=== PATIENT | male | born 1990 | race Caucasian/White ===

== ENCOUNTER 2017-08-24 22:07 | Emergency (ER) | payer MEDICAID, OTHER ==
[2017-08-24] MEDS ORDERED: Sodium Chloride 0.9% 1,000 ML IV STA (22:36)
--- NOTE | 2017-08-24 22:54 | ED PDOC ---
HPI: Abdomen Time Seen by Provider: 08/24/17 22:07 Chief Complaint (Nursing): GI Problem Chief Complaint (Provider): Vomiting History Per: Patient History/Exam Limitations: no limitations Additional Complaint(s): 27 y/o male presents to the emergency department with a complaint of intermittent episodes of vomiting x2 weeks that increased within the last few days. Associated with auditory hallucinations. Patient admits he drinks up to half pint of vodka and has been homeless for 3 weeks. Denies homicidal ro suicidal ideation. Requesting psychiatric evaluation. Past Medical History Reviewed: Historical Data, Nursing Documentation, Vital Signs Vital Signs: Last Vital Signs Temp 96.3 F L 08/24/17 22:17 Pulse 74 08/24/17 22:17 Resp 18 08/24/17 22:17 BP 121/73 08/24/17 22:17 Pulse Ox 100 08/24/17 22:56 - Medical History PMH: Bipolar Disorder, Depression, Schizophrenia Denies: Diabetes, Hepatitis, HIV, HTN, Chronic Kidney Disease, Seizures, Sexually Transmitted Disease - Family History Family History: States: Unknown Family Hx - Home Medications Home Medications: Ambulatory Orders Medication Instructions Recorded Naproxen [Naprosyn Tab] 1 tab PO Q8 PRN #15 tab 12/31/16 Non-Formulary 1 ea TOP DAILY #1 ea 12/31/16 - Allergies Allergies/Adverse Reactions: Allergies Allergy/AdvReac Type Severity Reaction Status Date / Time No Known Allergies Allergy Verified 12/31/16 19:41 Review of Systems ROS Statement: Except As Marked, All Systems Reviewed And Found Negative Gastrointestinal: Positive for: Vomiting Psych: Positive for: Other (Auditory hallucinations). Negative for: Suicidal ideation (homicidal ideation ) Physical Exam - Reviewed Nursing Documentation Reviewed: Yes Vital Signs Reviewed: Yes - Physical Exam Appears: Positive for: Well (Patient is well groomed), Non-toxic, No Acute Distress Head Exam: Positive for: ATRAUMATIC, NORMAL INSPECTION, NORMOCEPHALIC Skin: Positive for: Normal Color, Warm, Dry Cardiovascular/Chest: Positive for: Regular Rate, Rhythm. Negative for: Murmur Respiratory: Positive for: Normal Breath Sounds. Negative for: Accessory Muscle Use, Respiratory Distress Gastrointestinal/Abdominal: Positive for: Normal Exam, Soft. Negative for: Tenderness Extremity: Positive for: Normal ROM. Negative for: Pedal Edema Neurologic/Psych: Positive for: Alert, Oriented (x3) - Laboratory Results Result Diagrams: 08/24/17 23:30 08/25/17 01:12 - ECG O2 Sat by Pulse Oximetry: 100 (RA) Pulse Ox Interpretation: Normal - Progress ED Course And Treament: patient comfortable in ED. Seen by CRis[facility]. d/w Dr. Mathur Diagnosis substance abuse Medical Decision Making Medical Decision Making: Time: [id number] Initial impression: Abdominal Pain s/p alcohol intake Initial plan: --Alcohol Serum --CMP --Drug Scree --Lipase --Magnesium --CBC w/ diff --Pepcid --Sodium chloride 500 mls/hr IV --Zofran 4 mg IVP --Urinalysis --Reevaluation Scribe Attestation: Documented by Rose Saini, acting as a scribe for Hua Singleton PA-C. Provider Scribe Attestation: All medical record entries made by the Scribe were at my direction and personally dictated by me. I have reviewed the chart and agree that the record accurately reflects my personal performance of the history, physical exam, medical decision making, and the department course for this patient. I have also personally directed, reviewed, and agree with the discharge instructions and disposition. Disposition - Clinical Impression Clinical Impression: Substance abuse - Patient ED Disposition Is Patient to be Admitted: No - Disposition Referrals: [facility] [Outside] Disposition: Routine/Home Disposition Time: 03:56 Condition: STABLE Instructions: Polysubstance Abuse (ED) Forms: [id number] ([employer])
[2017-08-24 23:34] LABS: BASO # 0.1 K/uL (0.0-0.2); BASO % 0.8 % (0.0-2.0); EOS # 0.1 K/uL (0.0-0.7); HEMATOCRIT 40.4 % (35.0-51.0); LYMPH # 3.3 K/uL (1.0-4.3); LYMPH % 37.9 % (20.0-40.0); MEAN CELL VOLUME 89.6 fl (80.0-94.0); MEAN CORPUSCULAR HEMOGLOBIN 29.4 pg (27.0-31.0); MEAN CORPUSCULAR HGB CONC 32.8 g/dL (33.0-37.0); MEAN PLATELET VOLUME 7.2 fl (7.2-11.7); MONO # 0.7 K/uL (0.0-0.8); MONO % 8.2 % (0.0-10.0); NEUT # 4.6 K/uL (1.8-7.0); NEUT % 52.1 % (50.0-75.0); RED CELL DISTRIBUTION WIDTH 13.5 % (11.5-14.5); WHITE BLOOD COUNT 8.8 K/uL (4.8-10.8)
[2017-08-24 23:39] LABS: URINE BILIRUBIN NEGATIVE (NEGATIVE); URINE BLOOD NEGATIVE (NEGATIVE); URINE COLOR YELLOW (YELLOW); URINE GLUCOSE (UA) NEG (Normal); URINE KETONE TRACE mg/dL (NEGATIVE); URINE LEUKOCYTE ESTERASE NEG Leu/uL (Negative); URINE PROTEIN NEGATIVE (NEGATIVE); WBC URINE < 1 /hpf (0-5)
[2017-08-24 23:46] LABS: ALCOHOL SERUM < 10 mg/dl (0-10); LIPASE 54 U/L (23-300)
[2017-08-24 23:49] LABS: MAGNESIUM 2.1 MG/DL (1.6-2.3)
[2017-08-25 01:21] LABS: CALCIUM 8.8 mg/dL (8.4-10.2); CARBON DIOXIDE 26 mmol/L (22-30); CHLORIDE 107 mmol/L (98-107); GFR AFRICAN-AMERICAN > 60; GLUCOSE,RANDOM 89 mg/dL (75-110); SODIUM 141 mmol/l (132-148)
[2017-08-25 01:28] LABS: BLOOD UREA NITROGEN 16 mg/dl (9-20)
[2017-08-25 01:29] LABS: ALB/GLOB RATIO 1.3 (1.0-2.1); ALKALINE PHOSPHATASE 46 U/L (38-126); ALT/SGPT 35 U/L (21-72); AST/SGOT 51 U/L (17-59); POTASSIUM 4.7 MMOL/L (3.6-5.0); TOTAL PROTEIN 7.1 G/DL (6.3-8.2)
[2017-08-25 06:45] VITALS: BP 123/72; PULSE 63; RESP 16; TEMP 98.3; O2SAT 98
== END 2017-08-25 06:48 | disposition home or self-care (01) ==
LOC: H.ER 22:07
DX: F19.10 Other psychoactive substance abuse, uncomplicated (principal); F20.9 Schizophrenia, unspecified; F31.9 Bipolar disorder, unspecified
CPT/HCPCS: 80053; 80320; 80324; 80345; 80346; 80349; 80353; 80358; 80361; 81003; 83690; 83735; 83992; 85025; 96374; 96375; 99281; J2405; J7040

== ENCOUNTER 2017-08-26 06:54 | Inpatient (IN) | payer MEDICAID, OTHER ==
--- NOTE | 2017-08-26 07:07 | ED PDOC ---
HPI: General Adult Time Seen by Provider: 08/26/17 07:03 History Per: Patient (Seen earlier for gastritis, now expressing Si with plan to kill himself with knife) Past Medical History Vital Signs: Last Vital Signs Temp 97.8 F 08/26/17 07:15 Pulse 70 08/26/17 07:15 Resp 18 08/26/17 07:15 BP 127/57 L 08/26/17 07:15 Pulse Ox 99 08/26/17 07:15 - Medical History PMH: Bipolar Disorder, Depression, Schizophrenia Denies: Diabetes, Hepatitis, HIV, HTN, Chronic Kidney Disease, Seizures, Sexually Transmitted Disease - Family History Family History: States: Unknown Family Hx - Home Medications Home Medications: Ambulatory Orders Medication Instructions Recorded No Known Home Med 08/26/17 - Allergies Allergies/Adverse Reactions: Allergies Allergy/AdvReac Type Severity Reaction Status Date / Time No Known Allergies Allergy Verified 12/31/16 19:41 Review of Systems Constitutional: Negative for: Fever Gastrointestinal: Negative for: Nausea, Vomiting, Abdominal Pain, Diarrhea Psych: Positive for: Suicidal ideation Physical Exam - Physical Exam Appears: Positive for: Non-toxic, No Acute Distress Cardiovascular/Chest: Positive for: Regular Rate, Rhythm Respiratory: Positive for: CNT, Normal Breath Sounds Gastrointestinal/Abdominal: Positive for: Normal Exam, Bowel Sounds, Soft Extremity: Positive for: Normal ROM Neurologic/Psych: Positive for: Alert, Oriented Medical Decision Making Medical Decision Making: Medically stable for psychiatric admission Disposition - Clinical Impression Clinical Impression: Depression - Patient ED Disposition Is Patient to be Admitted: Yes - Disposition Disposition Time: 08:36 Condition: FAIR - Pt Status Changed To: Hospital Disposition Of: Inpatient - Admit Certification Admit to Inpatient:: After my assessment, the patient will require hospitalization for at least two midnights. This is because of the severity of symptoms shown, intensity of services needed, and/or the medical risk in this patient being treated as an outpatient. - POA Present On Arrival: None
[2017-08-26 07:23] VITALS: O2SAT 99
--- NOTE | 2017-08-26 08:43 | RAD ---
HISTORY: cough COMPARISON: Yesterday FINDINGS: LUNGS: No active pulmonary disease. PLEURA: No significant pleural effusion identified, no pneumothorax apparent. CARDIOVASCULAR: Normal. OSSEOUS STRUCTURES: No significant abnormalities. VISUALIZED UPPER ABDOMEN: Normal. OTHER FINDINGS: None. IMPRESSION: No active disease.
--- NOTE | 2017-08-26 11:35 | PCM.BM ---
<Jennifer Lima - Last Filed: 08/26/17 11:36> Treatment Plan Problems - Problems identified on initial assessmt Problem 1 Date Initiated: 08/26/17 Time Initiated: 11:37 Assessment reference: NA Status: Active Priority: 1 Social Isolation Date Initiated: 08/26/17 Time Initiated: 11:37 Assessment reference: NA Treatment assets and liabiliti Patient Assests: cooperative, physically healthy, negotiates basic needs Patient Liabilities: financial problems, poor support system - Milieu Protocol Maintain good personal hygiene: daily Encourage regular showers, every shift Remind patient to perform daily oral care, every shift Assist patient to perform ADL's Conduct patient checks and document Observation sheet: Q15 minutes Maintain personal safety: every shift Educate patient to report safety concerns to staff, every shift Monitor environment for contraband/sharps Medication safety: Monitor for expected outcome, potential side effects: every shift, Assess barriers to learning: every shift, Assess readiness for medication education: every shift <Sohail Robison - Last Filed: 08/29/17 13:12> Family Contact Family involvement: Famliy/SO not involved Family contact: Patient declines to allow family contact at present Family contact name: Pt denied significant relationships with any family or friends. - Goals for Treatment Patient goals for treatment: Pt would like to find a way to end his homelessness so he can be safe and away from drugs. 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 Patient to be encouraged to attend groups regularly to promote self-awareness, sobriety, and improve insight , coping skills and self-esteem. Patient to be provided with referral for appropriate level of aftercare to reduce risk of future hospitalizations and ensure safety in the community. Discharge/Continuing Care - Treatment Team Participation Patient/Family/SO Statement: 08/30/17 16:20 Patient attended tx team this morning and was able to engage in discussion regarding progress on 3NP and tx goals. Patient somewhat anxious but superficially cooperative and pleasant. Patient reported feeling "normal", denying symptom of depression or anxiety. Patient refusing to take recommended medications on 3NP. Patient reports "I don't trust them. I don't need to take them. There are other ways to get better." Patient encouraged to explore alternate ways to manage symptoms and reduce risk of future hospitalizations. Patient responded with "There are just different ways." Patient focused on homelessness and lack of family/social supports. Patient denied SI/HI and was able to contract for safety. Patient abivilent but agreeable to outpatient referrals ([facility]). Patient discharged after tx team.
[2017-08-26] MEDS ORDERED: Magnesium Hydroxide Susp 30 ml UD PO PRN (11:43)
[2017-08-26] MEDS ORDERED: Alum-Mag Hydrox-Simethicone Susp (30 mL) PO PRN (11:43)
[2017-08-26] MEDS ORDERED: DiphenhydrAMINE 50 mg/ml Inj IM PRN (12:05)
--- NOTE | 2017-08-26 18:37 | CP.PCM.CON ---
History of Present Illness - History of Present Illness History of Present Illness: 27 y/o male with PMH polysubstance abuse, ETOH abuse, admitted to psych unit for suicidal ideation . He was seen in ER for nausea, vomiting and upper respiratory symptoms and wsa cleared for discharge when patient expressed suicidal thoughts about killing himself. Crisis eval was called and patient admitted to psych unit. At present refuses to give more details about his symptoms or what brought him to hospital stating that there was a reason that brought him here but he refuses to talk about it .Physically feels fine Refuses to give any further details . Allergies ; NKDA PMH; psychiatric disorder, polysubstance abuse Medications ; NOne Surgery ; None Family history ; None Social history ; homeless ( has parents and siblings ), smoker , ETOH abuser when he starts to drink does not stop until he falls asleep, polysubstance abuse , marijuana, K2 Review of Systems - Review of Systems All systems: reviewed and no additional remarkable complaints except Past Patient History - Infectious Disease Hx of Infectious Diseases: None ( ) - Tetanus Immunizations Tetanus Immunization: Unknown - Past Medical History & Family History Past Medical History?: No Past Family History: Reviewed and not pertinent - Past Social History Smoking Status: Heavy Smoker > 10 Cigarettes Daily Alcohol: > 2 Drinks/Day Drugs: Other (K2) - CARDIAC Hx Cardiac Disorders: No - PULMONARY Hx Respiratory Disorders: No - NEUROLOGICAL Hx Neurological Disorder: No - HEENT Hx HEENT Problems: No - RENAL Hx Chronic Kidney Disease: No - ENDOCRINE/METABOLIC Hx Endocrine Disorders: No - HEMATOLOGICAL/ONCOLOGICAL Hx Blood Disorders: No - INTEGUMENTARY Hx Dermatological Problems: No - MUSCULOSKELETAL/RHEUMATOLOGICAL Hx Musculoskeletal Disorders: No - GASTROINTESTINAL Hx Gastrointestinal Disorders: No - GENITOURINARY/GYNECOLOGICAL Hx Genitourinary Disorders: No - PSYCHIATRIC Hx Substance Use: Yes (THC) - SURGICAL HISTORY Hx Surgeries: Yes - ANESTHESIA Hx Anesthesia: No Meds Allergies/Adverse Reactions: Allergies Allergy/AdvReac Type Severity Reaction Status Date / Time No Known Allergies Allergy Verified 12/31/16 19:41 - Medications Medications: Current Medications Acetaminophen (Tylenol 325mg Tab) 650 mg PO Q4 PRN PRN Reason: Pain, moderate (4-7) Al Hydrox/Mg Hydrox/Simethicone (Maalox Plus 30 Ml) 30 ml PO Q4 PRN PRN Reason: Dyspepsia Diphenhydramine HCl (Benadryl) 50 mg PO Q6 PRN PRN Reason: Extrapyramidal Symptoms Diphenhydramine HCl (Benadryl) 50 mg IM Q6 PRN PRN Reason: Agitation Escitalopram Oxalate (Lexapro) 5 mg PO DAILY JANET Haloperidol (Haldol) 5 mg PO Q4 PRN PRN Reason: Agitation Haloperidol Lactate (Haldol) 5 mg IM Q4 PRN PRN Reason: Agitation, Unable to Take PO Lorazepam (Ativan) 2 mg IM Q4 PRN PRN Reason: Anxiety/Agitation,Unable PO Lorazepam (Ativan) 2 mg PO Q6 PRN PRN Reason: Agitation Magnesium Hydroxide (Milk Of Magnesia) 30 ml PO HS PRN PRN Reason: Constipation Physical Exam - Constitutional Appears: Well, Non-toxic, No Acute Distress - Head Exam Head Exam: ATRAUMATIC, NORMOCEPHALIC - Eye Exam Eye Exam: EOMI, Normal appearance - ENT Exam ENT Exam: Normal Exam - Neck Exam Neck exam: Positive for: Full Rom, Normal Inspection - Respiratory Exam Respiratory Exam: NORMAL BREATHING PATTERN. absent: Accessory Muscle Use, Prolonged Expiratory Phase, Respiratory Distress - Cardiovascular Exam Cardiovascular Exam: absent: JVD - Rectal Exam Rectal Exam: Deferred - Extremities Exam Extremities exam: Negative for: pedal edema - Neurological Exam Neurological exam: Alert, Oriented x3 - Psychiatric Exam Psychiatric exam: Agitated - Skin Skin Exam: Dry, Normal Color, Warm Results - Vital Signs Recent Vital Signs: Last Vital Signs Temp 97.8 F 08/26/17 09:37 Pulse 70 08/26/17 09:37 Resp 18 08/26/17 09:37 BP 127/57 L 08/26/17 09:37 Pulse Ox 99 08/26/17 07:15 - Labs Labs: Laboratory Results - last 24 hr 08/26/17 08/26/17 09:46 09:46 Urine Opiates Screen Negative Urine Methadone Screen Negative Ur Barbiturates Screen Negative Ur Phencyclidine Scrn Negative Ur Amphetamines Screen Negative U Benzodiazepines Scrn Negative U Oth Cocaine Metabols Negative U Cannabinoids Screen Negative Alcohol, Quantitative < 10 Assessment & Plan - Assessment and Plan (Free Text) Assessment: 27 y/o male with PMH polysubstance abuse, ETOH abuse, admitted to psych unit for suicidal ideation . He was seen in ER for nausea, vomiting and upper respiratory symptoms and wsa cleared for discharge when patient expressed suicidal thoughts about killing himself. Crisis eval was called and patient admitted to psych unit. At present refuses to give more details about his symptoms or what brought him to hospital stating that there was a reason that brought him here but he refuses to talk about it .Physically feels fine Refuses to give any further details . 1. psychiatric disorder-- managemt as per psych Patient is medically stable Please re consult if needed
[2017-08-27 07:31] LABS: T4 9.18 ug/dl (5.5-11.0)
[2017-08-27 07:45] LABS: THYROID STIMULATING HORMONE 0.66 mIU/ML (0.46-4.68)
--- NOTE | 2017-08-27 14:49 | PCM.PSYCH ---
Initial Psychiatric Evaluation - Initial Psychiatric Evaluation Type of Admission: Voluntary Legal Status: Capacity Chief Complaint (in patient's own words): I do need to work on myself Patient's Reaction to Hospitalization: pt requested to get help History of Present Illness and Precipitating Events: pt with previous diagnosis of polysubstance use and psychotic disorder, one previous hospitalization at 01/17, non compliant with medications or follow up pt presented to ER for abdominal pain, then expressed depressed mood and suicidal ideations pt reported using alcohol daily , last use two days before admiision, not specifying amount but stating it wasa large amount also reporteed smoking cannabis daily reported being here to get back on track, pt reported non command auditory hallucinations and presenting with diaorganized thought process, denied current S/HI and urine toxicology is negative and blood alcohol level less than 10 Current Medications: Active Medications Generic Name Dose Route Start Last Admin Trade Name Freq PRN Reason Stop Dose Admin Acetaminophen 650 mg 08/26/17 11:43 Tylenol 325mg Tab PO Q4 PRN Pain, moderate (4-7) Al Hydrox/Mg Hydrox/Simethicone 30 ml 08/26/17 11:43 Maalox Plus 30 Ml PO Q4 PRN Dyspepsia Diphenhydramine HCl 50 mg 08/26/17 11:43 Benadryl PO Q6 PRN Extrapyramidal Symptoms Diphenhydramine HCl 50 mg 08/26/17 12:05 Benadryl IM Q6 PRN Agitation Escitalopram Oxalate 5 mg 08/27/17 09:00 Lexapro PO DAILY JANET Haloperidol 5 mg 08/26/17 11:43 Haldol PO Q4 PRN Agitation Haloperidol Lactate 5 mg 08/26/17 11:43 Haldol IM Q4 PRN Agitation, Unable to Take PO Lorazepam 2 mg 08/26/17 11:43 Ativan IM Q4 PRN Anxiety/Agitation,Unable PO Lorazepam 1 mg 08/27/17 12:53 Ativan PO BID PRN Anxiety Lorazepam 1 mg 08/27/17 17:00 Ativan PO TID JANET Magnesium Hydroxide 30 ml 08/26/17 11:43 Milk Of Magnesia PO HS PRN Constipation Risperidone 1 mg 08/27/17 14:34 Risperdal M-Tab PO DAILY JANET Past Psychiatric History - Past Psychiatric History Previous Treatment History: Inpatient Explanation of prior treatment: one hospitalization at 01/17 in [facility] , due to hallucinogen and cannabis induced psychosis since then non compliant with any follow up History of Abuse: denied History of ETOH/Drug Use: pt reported using alcohol daily since age 19. denied being in rehab before using cannabis daily and history of using hallucinogens History of Family Illness: denied Pertinent Medical Hx (Current Medical&Sleep Prob, Allergies): Allergies Allergy/AdvReac Type Severity Reaction Status Date / Time No Known Allergies Allergy Verified 12/31/16 19:41 No Known Home Med 08/26/17 Mental Status Examination - Personal Presentation Personal Presentation: Looks stated age Additional comments: unkempt, disheveled - Affect Affect: Depressed - Motor Activity Motor Activity: Psychomotor Agitation - Reliability in Providing Information Reliability in Providing Information: Poor, due to alteration in thoughts, Poor , due to altered mood - Speech Speech: Disorganized - Mood Mood: Anxious - Formal Thought Process Formal Thought Process: Hallucinations, Loosening of associations, Circumstantial Additional comments: pt reported non command auditory hallucinations observed internally preoccupied and responding to internal stimuli - Hallucinations/Delusions Hallucinations: Auditory - Obsessions/Compulsions Obsessions: No Compulsions: No - Cognitive Functions Orientation: Person, Place Sensorium: Alert Attention/Concentration: Easily distracted Abstract Thinking: [place] Judgement: Imparied, as evidence by: Poor judgement, Imparied, as evidence by: Lack of insight into illness Memory: Recent intact, as evidence by: Ability to recall events of the day - Risk Risk: Diminished functioning - Strength & Assets Inventory Strength & Assets Inventory: Life experience - Limitations Additional comments: homeless, unemployed DSM 5 DX - DSM 5 DSM 5 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
[2017-08-27] MEDS: Risperidone M tab 1 MG PO SCH (18:23)
--- NOTE | 2017-08-28 11:46 | PCM.PYCHPN ---
Psychiatric Progress Note - Psychiatric Progress Note Patient seen today, length of contact: pt seen and evaluated Patient Chief Complaint: pt still feels very anxious and minimises his selfdestructive behavior and has been abusing illicit drugs and alcohol and remains with poor insight and need further stabilization.pt refuses to take meds . DSM 5 Symptoms Update: depression,mood disorder,substance abuse Medication Change: No Medical Record Reviewed: Yes Mental Status Examination - Cognitive Function Orientation: Person, Place Memory: Intact Attention: Poor Concentration: Poor Association: WNL Fund of Knowledge: WNL - Mood Mood: Depressed, Anxious - Affect Affect: Depressed - Speech Speech: Appropriate - Formal Thought Process Formal Thought Process: Hallucinations, Loosening of associations, Circumstantial - Homicidal Ideation Homicidal Ideation: No Goal/Treatment Plan - Goal/Treatment Plan Progress Toward Problem(s) and Goals/Treatment Plan: will continue to offer lexapro and add trileptal if pt is agreeable will engage pt in therapy.
[2017-08-28] MEDS: Risperidone M tab 1 MG PO SCH (18:54)
--- NOTE | 2017-08-29 11:50 | PCM.PYCHPN ---
Psychiatric Progress Note - Psychiatric Progress Note Patient seen today, length of contact: pt seen and evaluated Patient Chief Complaint: pt still feels very anxious and minimises his selfdestructive behavior and has been abusing illicit drugs and alcohol and remains with poor insight and need further stabilization.pt refuses to take meds . Medication Change: No Medical Record Reviewed: Yes Mental Status Examination - Cognitive Function Orientation: Person, Place Memory: Intact Attention: Poor Concentration: Poor Association: WNL Fund of Knowledge: WNL - Mood Mood: Depressed, Anxious - Affect Affect: Depressed - Speech Speech: Appropriate - Formal Thought Process Formal Thought Process: Hallucinations, Loosening of associations, Circumstantial - Homicidal Ideation Homicidal Ideation: No Goal/Treatment Plan - Goal/Treatment Plan Progress Toward Problem(s) and Goals/Treatment Plan: will continue to offer lexapro and add trileptal if pt is agreeable will engage pt in therapy.
[2017-08-29] MEDS: Risperidone M tab 1 MG PO SCH (14:21)
[2017-08-30] MEDS: Risperidone M tab 1 MG PO SCH (09:21)
[2017-08-30 10:58] VITALS: BP 141/83; PULSE 54; RESP 16; TEMP 97.9
--- NOTE | 2017-08-30 14:34 | PCM.PYCHDC ---
Mental Status Examination - Mental Status Examination Orientation: Person, Situation, Time Memory: Intact Mood: Neutral Affect: Constricted Speech: Appropriate Attention: WNL Concentration: WNL Association: WNL Fund of Knowledge: Poor Formal Thought Process: No Impairment Description of patient's judgement and insight: impaired insight and poor judgement Psychotic Thoughts and Behaviors: pt denied perceptual disturbances, denied psychotic symptoms, non elicited Suicidal Ideation: No Current Homicidal Ideation?: No Discharge Summary - Discharge Note Reason for Hospitalization: pt requested to get help with previous diagnosis of polysubstance use and psychotic disorder, one previous hospitalization at 01/17, non compliant with medications or follow up pt presented to ER for abdominal pain, then expressed depressed mood and suicidal ideations pt reported using alcohol daily , last use two days before admiision, not specifying amount but stating it wasa large amount also reporteed smoking cannabis daily reported being here to get back on track, pt reported non command auditory hallucinations and presenting with diaorganized thought process, denied current S/HI and urine toxicology is negative and blood alcohol level less than 10 Consultations:: List each consultation separately and include: 1. Reason for request. 2. Findings. 3. Follow-up Summary of Hospital Course include:: 1. Description of specific treatment plan utilized for patients during their course of treatmen. 2. Summarize the time- course for resolution of acute symptoms and/or regressed behaviors. 3. Describe issues identified and worked on during hospitalization. 4. Describe medication utilized. 5. Describe medical problems identified and treated. 6. 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
== END 2017-08-30 15:48 | disposition home or self-care (01) | DRG 897 ==
LOC: H.ER 06:54 → H.ERHOLD 08:35 → H.PSYCH 09:50
PROVIDERS: ADMIT Psychiatry & Neurology Psychiatry; ATTEND Psychiatry & Neurology Psychiatry
DX: F10.24 Alcohol dependence with alcohol-induced mood disorder (principal); F12.159 Cannabis abuse with psychotic disorder, unspecified; F10.239 Alcohol dependence with withdrawal, unspecified; R45.851 Suicidal ideations; F17.210 Nicotine dependence, cigarettes, uncomplicated; Y90.0 Blood alcohol level of less than 20 mg/100 ml; Z59.0 Homelessness; Z91.14 Patient's other noncompliance with medication regimen; Z91.19 Patient's noncompliance with other medical treatment and regimen

== ENCOUNTER 2017-08-31 04:21 | Inpatient (IN) | payer MEDICAID, OTHER ==
[2017-08-31 04:41] VITALS: O2SAT 98
--- NOTE | 2017-08-31 04:49 | ED PDOC ---
HPI: Psych/Substance Abuse Time Seen by Provider: 08/31/17 04:28 Chief Complaint (Nursing): Psychiatric Evaluation Chief Complaint (Provider): "I'm angry" History Per: Patient Additional Complaint(s): 27 yo male, PMH of "psych problems," presents to ED with complaints of aggressive behavior at home. Reports that he was biting his tongue and screaming. Pt admits to thoughts of hurting himself, but not killing himself. no homicidal ideations. Pt sates: "I just want to break things." As per chart review: Pt with Psychiatric history of Bipolar Disorder, Schizophrenia and Depression Past Medical History Reviewed: Nursing Documentation, Vital Signs Vital Signs: Last Vital Signs Temp 98.1 F 08/31/17 04:37 Pulse 71 08/31/17 04:37 Resp 16 08/31/17 04:37 BP 144/67 08/31/17 04:37 Pulse Ox 98 08/31/17 04:37 - Medical History PMH: Bipolar Disorder, Depression, Schizophrenia Denies: Diabetes, Hepatitis, HIV, HTN, Chronic Kidney Disease, Seizures, Sexually Transmitted Disease - Surgical History Surgical History: No Surg Hx - Family History Family History: States: Unknown Family Hx - Social History Current smoker - smoking cessation education provided: No Alcohol: None Drugs: Denies - Home Medications Home Medications: Ambulatory Orders Medication Instructions Recorded Escitalopram [Lexapro] 5 mg PO DAILY 15 Days #15 tab 08/30/17 - Allergies Allergies/Adverse Reactions: Allergies Allergy/AdvReac Type Severity Reaction Status Date / Time No Known Allergies Allergy Verified 08/31/17 04:36 Review of Systems ROS Statement: Except As Marked, All Systems Reviewed And Found Negative Physical Exam - Reviewed Nursing Documentation Reviewed: Yes Vital Signs Reviewed: Yes - Physical Exam Appears: Positive for: Well, Non-toxic, No Acute Distress Head Exam: Positive for: ATRAUMATIC, NORMAL INSPECTION, NORMOCEPHALIC Skin: Positive for: Normal Color, Warm, DRY Eye Exam: Positive for: EOMI, Normal appearance, PERRL ENT: Positive for: Normal ENT Inspection Neck: Positive for: Normal, Painless ROM Cardiovascular/Chest: Positive for: Regular Rate, Rhythm Respiratory: Positive for: CNT, Normal Breath Sounds Gastrointestinal/Abdominal: Positive for: Normal Exam, Bowel Sounds, Soft Back: Positive for: Normal Inspection Extremity: Positive for: Normal ROM Neurologic/Psych: Positive for: Alert, Oriented - Laboratory Results Result Diagrams: 08/31/17 05:21 08/31/17 05:21 - ECG O2 Sat by Pulse Oximetry: 98 Medical Decision Making Medical Decision Making: Diagnostics ordered Crisis called to bedside. See notes. Pt placed in 1:1 for safety UA and UDS pending CBC and COMP WNL Alcohol (-) Pt medically cleared for admission to 3[facility] Disposition - Clinical Impression Clinical Impression: Schizoaffective disorder - Patient ED Disposition Is Patient to be Admitted: Yes - Disposition Disposition Time: 05:59 Condition: STABLE Forms: [employer] (Thai) - Pt Status Changed To: Hospital Disposition Of: Inpatient - Admit Certification Admit to Inpatient:: After my assessment, the patient will require hospitalization for at least two midnights. This is because of the severity of symptoms shown, intensity of services needed, and/or the medical risk in this patient being treated as an outpatient. - POA Present On Arrival: None
[2017-08-31 05:25] LABS: BASO # 0.1 K/uL (0.0-0.2); BASO % 0.9 % (0.0-2.0); EOS # 0.1 K/uL (0.0-0.7); HEMATOCRIT 43.2 % (35.0-51.0); LYMPH # 3.9 K/uL (1.0-4.3); LYMPH % 37.6 % (20.0-40.0); MEAN CELL VOLUME 89.8 fl (80.0-94.0); MEAN CORPUSCULAR HEMOGLOBIN 29.8 pg (27.0-31.0); MEAN CORPUSCULAR HGB CONC 33.1 g/dL (33.0-37.0); MONO # 0.7 K/uL (0.0-0.8); MONO % 7.1 % (0.0-10.0); NEUT # 5.5 K/uL (1.8-7.0); NEUT % 53.4 % (50.0-75.0); RED CELL DISTRIBUTION WIDTH 13.5 % (11.5-14.5); WHITE BLOOD COUNT 10.3 K/uL (4.8-10.8)
[2017-08-31 05:34] LABS: ALB/GLOB RATIO 1.3 (1.0-2.1); ALCOHOL SERUM < 10 mg/dl (0-10); ALKALINE PHOSPHATASE 71 U/L (38-126); ALT/SGPT 39 U/L (21-72); AST/SGOT 27 U/L (17-59); BILIRUBIN,TOTAL 0.2 mg/dl (0.2-1.3); BLOOD UREA NITROGEN 11 mg/dl (9-20); CARBON DIOXIDE 26 mmol/L (22-30); CHLORIDE 105 mmol/L (98-107); GFR AFRICAN-AMERICAN > 60; GLUCOSE,RANDOM 99 mg/dL (75-110); SODIUM 143 mmol/l (132-148)
[2017-08-31 07:27] LABS: RBC URINE 1 /hpf (0-3); URINE BACTERIA RARE (<OCC); URINE BILIRUBIN SMALL (NEGATIVE); URINE BLOOD NEGATIVE (NEGATIVE); URINE COLOR AMBER (YELLOW); URINE GLUCOSE (UA) NEG (Normal); URINE KETONE NEGATIVE (NEGATIVE); URINE LEUKOCYTE ESTERASE NEG Leu/uL (Negative); URINE PROTEIN 30 mg/dL (NEGATIVE); WBC URINE < 1 /hpf (0-5)
[2017-08-31 09:17] VITALS: RESP 18
[2017-08-31] MEDS ORDERED: Alum-Mag Hydrox-Simethicone Susp (30 mL) PO PRN (11:28)
[2017-08-31] MEDS ORDERED: DiphenhydrAMINE 50 mg/ml Inj IM PRN (11:28)
[2017-08-31] MEDS ORDERED: Magnesium Hydroxide Susp 30 ml UD PO PRN (11:28)
--- NOTE | 2017-08-31 14:27 | PCM.PSYCH ---
Initial Psychiatric Evaluation - Initial Psychiatric Evaluation Type of Admission: Voluntary Legal Status: Capacity Chief Complaint (in patient's own words): I WANTED TO HURT MYSELF Patient's Reaction to Hospitalization: PT REQUESTED HELP History of Present Illness and Precipitating Events: PT WITH PREVIOUS DISGNOSIS OF DEPRESSION AND POLYSUBSTANCE USE DISORDER, RECENTLY DISCHARGED FROM HOSPITAL , PT IS HOMELESS , WITH MULTIPLE FINANCIAL STRESSORS, BECAME INCREASINGLY DEPRESSED WITH SUICIDAL IDEATIONS, PRESENTED TO ER FOR HELP Current Medications: Active Medications Generic Name Dose Route Start Last Admin Trade Name Freq PRN Reason Stop Dose Admin Acetaminophen 650 mg 08/31/17 11:28 Tylenol 325mg Tab PO Q4 PRN Pain, severe (8-10) Al Hydrox/Mg Hydrox/Simethicone 30 ml 08/31/17 11:28 Maalox Plus 30 Ml PO Q4 PRN Dyspepsia Diphenhydramine HCl 50 mg 08/31/17 11:28 Benadryl IM Q6 PRN Extrapyramidal S/S Unable PO Diphenhydramine HCl 50 mg 08/31/17 11:28 Benadryl PO Q6 PRN Extrapyramidal Symptoms Escitalopram Oxalate 5 mg 09/01/17 09:00 Lexapro PO DAILY JANET Haloperidol 5 mg 08/31/17 11:28 Haldol PO Q4 PRN Agitation Haloperidol Lactate 5 mg 08/31/17 11:28 Haldol IM Q4 PRN Agitation, Unable to Take PO Lorazepam 2 mg 08/31/17 11:28 Ativan IM Q4 PRN Anxiety/Agitation,Unable PO Lorazepam 2 mg 08/31/17 11:28 Ativan PO Q4 PRN Anxiety/Agitation Magnesium Hydroxide 30 ml 08/31/17 11:28 Milk Of Magnesia PO HS PRN Constipation Past Psychiatric History - Past Psychiatric History Explanation of prior treatment: MULTIPLE INPATIENT HOSPITALIZATIONS History of Abuse: DENIED History of ETOH/Drug Use: HX OF ALCOHOL, STIMULANT AND CANNABIS USE History of Family Illness: DENIED Pertinent Medical Hx (Current Medical&Sleep Prob, Allergies): Allergies Allergy/AdvReac Type Severity Reaction Status Date / Time No Known Allergies Allergy Verified 08/31/17 04:36 Escitalopram [Lexapro] 5 mg PO DAILY 15 Days #15 tab 08/30/17 Mental Status Examination - Personal Presentation Personal Presentation: Looks stated age - Affect Affect: Depressed - Motor Activity Motor Activity: Psychomotor Retardation - Reliability in Providing Information Reliability in Providing Information: Poor, due to altered mood - Speech Speech: Irrelevant - Mood Mood: Depressed - Formal Thought Process Formal Thought Process: Circumstantial Additional comments: PT DENIED PERCEPTUAL DISTURBANCES, NON ELICITED - Obsessions/Compulsions Obsessions: No Compulsions: No - Cognitive Functions Orientation: Person, Place Sensorium: Alert Attention/Concentration: Easily distracted Abstract Thinking: [place] Judgement: Imparied, as evidence by: Poor judgement, Imparied, as evidence by: Lack of insight into illness - Risk Risk: Diminished functioning - Strength & Assets Inventory Strength & Assets Inventory: Life experience - Limitations Additional comments: HOMELESSNESS DSM 5 DX - DSM 5 DSM 5 Diagnosis: DEPRESSIVE DISORDER POLYSUBSTANCE USE DISORDER - Recommended/Plan of Treatment Treatment Recommendations and Plan of Treatment: START LEXAPRO 5MG GROUP AND SUPPORTIVE THERAPY REFERRAL TO REHAB ON DISCHARGE Projected ELOS: 7 DAYS Discharge Plan and Discharge Criteria: PT NO LONGER DEPRESSED
[2017-08-31 16:55] VITALS: BP 123/69; PULSE 65; TEMP 97.7
--- NOTE | 2017-08-31 18:34 | CP.PCM.CON ---
History of Present Illness - History of Present Illness History of Present Illness: 27 y/o male with PMH polysubstance abuse, ETOH abuse,depression , psychiatric disorder, homeless discharged from psych unit 08/30 presented to ER for worsening depression and suicidal ideation . Medicine consult was called. As per chart and staff patient refused psychiatric management last admission., medications and grpoup therapy so wsa discharged . Patient sattes that he started having bad thoughts so decided to come back. In ER he was aggressive . At present he is calm and cooperativre , denies any CP , DSOB, palpitations. Gives history of frequent urination but denies dysuria. Complains of sudden generalized body tremors at times. He admits to heavy drinking and withdrawal symptoms when he stops. He would like to stop drinking Gives history of prior psychiatric admissions but does not like psychiatric meds because he does not need them . Has prior history of suicidal attempt 7 months ago by cutting his wrists. Allergies ; NKDA PMH; psychiatric disorder, polysubstance abuse, homeless Medications ; NOne Surgery ; None Family history ; None Social history ; homeless ( has parents and siblings ), smoker , ETOH abuser when he starts to drink does not stop until he falls asleep, polysubstance abuse , marijuana, K2 ROS ; 14 point review of symptoms negative except above Review of Systems - Review of Systems All systems: reviewed and no additional remarkable complaints except Past Patient History - Infectious Disease Hx of Infectious Diseases: None ( ) - Tetanus Immunizations Tetanus Immunization: Unknown - Past Medical History & Family History Past Medical History?: No Past Family History: Reviewed and not pertinent - Past Social History Smoking Status: Heavy Smoker > 10 Cigarettes Daily Alcohol: > 2 Drinks/Day Drugs: Denies, Cocaine, Other (k2) Home Situation {Lives}: Homeless - CARDIAC Hx Cardiac Disorders: No Hx Hypertension: No - PULMONARY Hx Respiratory Disorders: No Hx Tuberculosis: No - NEUROLOGICAL Hx Neurological Disorder: No Hx Seizures: No - HEENT Hx HEENT Problems: No - RENAL Hx Chronic Kidney Disease: No - ENDOCRINE/METABOLIC Hx Endocrine Disorders: No - HEMATOLOGICAL/ONCOLOGICAL Hx Blood Disorders: No Hx Human Immunodeficiency Virus (HIV): No - INTEGUMENTARY Hx Dermatological Problems: No - MUSCULOSKELETAL/RHEUMATOLOGICAL Hx Musculoskeletal Disorders: No - GASTROINTESTINAL Hx Gastrointestinal Disorders: No - GENITOURINARY/GYNECOLOGICAL Hx Genitourinary Disorders: No Hx Sexually Transmitted Disorders: No - PSYCHIATRIC Hx Substance Use: No - SURGICAL HISTORY Hx Surgeries: No - ANESTHESIA Hx Anesthesia: No Meds Allergies/Adverse Reactions: Allergies Allergy/AdvReac Type Severity Reaction Status Date / Time No Known Allergies Allergy Verified 08/31/17 04:36 - Medications Medications: Current Medications Acetaminophen (Tylenol 325mg Tab) 650 mg PO Q4 PRN PRN Reason: Pain, severe (8-10) Al Hydrox/Mg Hydrox/Simethicone (Maalox Plus 30 Ml) 30 ml PO Q4 PRN PRN Reason: Dyspepsia Diphenhydramine HCl (Benadryl) 50 mg IM Q6 PRN PRN Reason: Extrapyramidal S/S Unable PO Diphenhydramine HCl (Benadryl) 50 mg PO Q6 PRN PRN Reason: Extrapyramidal Symptoms Escitalopram Oxalate (Lexapro) 5 mg PO DAILY JANET Haloperidol (Haldol) 5 mg PO Q4 PRN PRN Reason: Agitation Haloperidol Lactate (Haldol) 5 mg IM Q4 PRN PRN Reason: Agitation, Unable to Take PO Lorazepam (Ativan) 2 mg IM Q4 PRN PRN Reason: Anxiety/Agitation,Unable PO Lorazepam (Ativan) 2 mg PO Q4 PRN PRN Reason: Anxiety/Agitation Magnesium Hydroxide (Milk Of Magnesia) 30 ml PO HS PRN PRN Reason: Constipation Physical Exam - Constitutional Appears: Non-toxic, No Acute Distress - Head Exam Head Exam: ATRAUMATIC, NORMAL INSPECTION, NORMOCEPHALIC - Eye Exam Eye Exam: EOMI, Normal appearance, PERRL Pupil Exam: NORMAL ACCOMODATION - ENT Exam ENT Exam: Mucous Membranes Moist, Normal Exam - Neck Exam Neck exam: Positive for: Full Rom, Normal Inspection - Respiratory Exam Respiratory Exam: Clear to Auscultation Bilateral, NORMAL BREATHING PATTERN. absent: Rales, Rhonchi, Wheezes - Cardiovascular Exam Cardiovascular Exam: REGULAR RHYTHM, RRR, +S1, +S2. absent: JVD - GI/Abdominal Exam GI & Abdominal Exam: Normal Bowel Sounds, Soft. absent: Distended, Guarding, Rebound, Tenderness - Rectal Exam Rectal Exam: Deferred - Extremities Exam Extremities exam: Positive for: normal capillary refill, normal inspection, pedal pulses present. Negative for: calf tenderness, pedal edema - Back Exam Back exam: NORMAL INSPECTION - Neurological Exam Neurological exam: Alert, CN II-XII Intact, Oriented x3 - Psychiatric Exam Psychiatric exam: Flat Affect - Skin Skin Exam: Dry, Intact, Normal Color, Warm Results - Vital Signs Recent Vital Signs: Last Vital Signs Temp 97.7 F 08/31/17 16:54 Pulse 65 08/31/17 16:54 Resp 18 08/31/17 16:54 BP 123/69 08/31/17 16:54 Pulse Ox 98 08/31/17 05:59 - Labs Result Diagrams: 08/31/17 05:21 08/31/17 05:21 Labs: Laboratory Results - last 24 hr 08/31/17 08/31/17 08/31/17 05:21 05:21 06:21 WBC 10.3 RBC 4.81 Hgb 14.3 Hct 43.2 MCV 89.8 MCH 29.8 MCHC 33.1 RDW 13.5 Plt Count 223 MPV 7.0 L Neut % (Auto) 53.4 Lymph % (Auto) 37.6 [place] % (Auto) 7.1 Eos % (Auto) 1.0 Baso % (Auto) 0.9 Neut # 5.5 Lymph # 3.9 [place] # 0.7 Eos # 0.1 Baso # 0.1 Sodium 143 Potassium 4.0 Chloride 105 Carbon Dioxide 26 Anion Gap 16 BUN 11 Creatinine 0.7 L Est GFR ( Amer) > 60 Est GFR (Non-Af Amer) > 60 Random Glucose 99 Hemoglobin A1c Calcium 9.0 Total Bilirubin 0.2 AST 27 ALT 39 Alkaline Phosphatase 71 Total Protein 8.0 Albumin 4.5 Globulin 3.5 Albumin/Globulin Ratio 1.3 Urine Color Urine Clarity Urine pH Ur Specific [place] Urine Protein Urine Glucose (UA) Urine Ketones Urine Blood Urine Nitrate Urine Bilirubin Urine Urobilinogen Ur Leukocyte Esterase Urine RBC (Auto) Urine Microscopic WBC Urine Bacteria Urine Opiates Screen Negative Urine Methadone Screen Negative Ur Barbiturates Screen Negative Ur Phencyclidine Scrn Negative Ur Amphetamines Screen Negative U Benzodiazepines Scrn Negative U Oth Cocaine Metabols Negative U Cannabinoids Screen Negative Alcohol, Quantitative < 10 08/31/17 08/31/17 06:21 12:10 WBC RBC Hgb Hct MCV MCH MCHC RDW Plt Count MPV Neut % (Auto) Lymph % (Auto) [place] % (Auto) Eos % (Auto) Baso % (Auto) Neut # Lymph # [place] # Eos # Baso # Sodium Potassium Chloride Carbon Dioxide Anion Gap BUN Creatinine Est GFR ( Amer) Est GFR (Non-Af Amer) Random Glucose Hemoglobin A1c 5.4 Calcium Total Bilirubin AST ALT Alkaline Phosphatase Total Protein Albumin Globulin Albumin/Globulin Ratio Urine Color Lilly Urine Clarity Slighty-cloudy Urine pH 5.0 Ur Specific [place] 1.030 Urine Protein 30 Urine Glucose (UA) Neg Urine Ketones Negative Urine Blood Negative Urine Nitrate Negative Urine Bilirubin Small Urine Urobilinogen 2.0 Ur Leukocyte Esterase Neg Urine RBC (Auto) 1 Urine Microscopic WBC < 1 Urine Bacteria Rare Urine Opiates Screen Urine Methadone Screen Ur Barbiturates Screen Ur Phencyclidine Scrn Ur Amphetamines Screen U Benzodiazepines Scrn U Oth Cocaine Metabols U Cannabinoids Screen Alcohol, Quantitative Assessment & Plan - Assessment and Plan (Free Text) Assessment: 27 y/o male with PMH polysubstance abuse, ETOH abuse,depression , psychiatric disorder, homeless discharged from psych unit 08/30 presented to ER for worsening depression and suicidal ideation . Medicine consult was called. As per chart and staff patient refused psychiatric management last admission., medications and grpoup therapy so wsa discharged . Patient sattes that he started having bad thoughts so decided to come back. In ER he was aggressive . At present he is calm and cooperativre , denies any CP , DSOB, palpitations. Gives history of frequent urination but denies dysuria. Complains of sudden generalized body tremors at times. He admits to heavy drinking and withdrawal symptoms when he stops. He would like to stop drinking Gives history of prior psychiatric admissions but does not like psychiatric meds because he does not need them . Has prior history of suicidal attempt 7 months ago by cutting his wrists. 1.Psychiatric disorder Continue psych management 2. Polysubstance abuse 3. ETOH abuse Start Thiamine, folic acid and MVI Ativan PRN for withdrawal symptoms
[2017-09-01] MEDS ORDERED: Multivitamin With Minerals Tab PO SCH (09:00)
[2017-09-01] MEDS ORDERED: Influenza Vaccine 18yr & older 0.5 ML/45 MCG SYR IM ONE (09:00)
[2017-09-01] MEDS ORDERED: Pneumococcal 23-Valent Vaccine IM ONE (09:00)
--- NOTE | 2017-09-01 11:11 | PCM.PYCHDC ---
Mental Status Examination - Mental Status Examination Orientation: Person, Place, Situation Mood: Neutral Affect: Constricted Speech: Appropriate Attention: WNL Concentration: WNL Association: WNL Fund of Knowledge: Poor Formal Thought Process: Circumstantial Description of patient's judgement and insight: poor insight and judgement Psychotic Thoughts and Behaviors: pt denied perceptual disturbances or psychotic symptoms, non elicited Suicidal Ideation: No Current Homicidal Ideation?: No Discharge Summary - Discharge Note Reason for Hospitalization: PT REQUESTED HELP PT WITH PREVIOUS DISGNOSIS OF DEPRESSION AND POLYSUBSTANCE USE DISORDER, RECENTLY DISCHARGED FROM HOSPITAL , PT IS HOMELESS , WITH MULTIPLE FINANCIAL STRESSORS, BECAME INCREASINGLY DEPRESSED WITH SUICIDAL IDEATIONS, PRESENTED TO ER FOR HELP Laboratory Data: Abnormal Lab Results 08/31/17 12:10 Hemoglobin A1c 5.4 Consultations:: List each consultation separately and include: 1. Reason for request. 2. Findings. 3. Follow-up Summary of Hospital Course include:: 1. Description of specific treatment plan utilized for patients during their course of treatmen. 2. Summarize the time- course for resolution of acute symptoms and/or regressed behaviors. 3. Describe issues identified and worked on during hospitalization. 4. Describe medication utilized. 5. Describe medical problems identified and treated. 6. Reassessment of suicide risk Summary of Hospital Course: PT on admission was unccoperative with the treatment plan, refused medications, refused to attend groups and refused the after care plan pt on evaluation at current mental status denied suicidal or homicidal ideations , denied perceptual disturbances, denied command hallucinations pt at current mental status is not danger to self or others, pt will be discharged with referral resources for outpatient care pt refused to be started on medications - Final Diagnosis (DSM 5) Condition upon Discharge: STABLE Disposition: HOME/ ROUTINE Follow-up Treatment Plan: pt was offered outpatient care but refused - Antipsychotic Medications Pt discharged on 2 or more routine antipsychotic medications: No
== END 2017-09-01 14:30 | disposition home or self-care (01) | DRG 881 ==
LOC: H.ER 04:21 → H.ERHOLD 05:54 → H.PSYCH 06:43
PROVIDERS: ADMIT Psychiatry & Neurology Psychiatry; ATTEND Psychiatry & Neurology Psychiatry
DX: F32.9 Major depressive disorder, single episode, unspecified (principal); R45.851 Suicidal ideations; F10.10 Alcohol abuse, uncomplicated; F12.90 Cannabis use, unspecified, uncomplicated; Z59.0 Homelessness; F17.210 Nicotine dependence, cigarettes, uncomplicated

== ENCOUNTER 2017-09-01 22:04 | Emergency (ER) | payer MEDICAID, OTHER ==
[2017-09-01 22:09] VITALS: BP 131/73; PULSE 123; RESP 22; TEMP 98.8; O2SAT 100
[2017-09-01] MEDS ORDERED: Sodium Chloride 0.9% 1,000 ML IV STA (22:27)
--- NOTE | 2017-09-01 22:36 | ED PDOC ---
HPI: Psych/Substance Abuse Time Seen by Provider: 09/01/17 22:12 Chief Complaint (Nursing): Alcohol Ingestion Chief Complaint (Provider): Acute alcohol intoxication ED Caveat: Intoxicated History Per: Patient History/Exam Limitations: intoxication Additional Complaint(s): Patient is a 27 y/o male under police custody brought to the emergency department for acute alcohol intoxication. Per triage, patient was drinking alcohol and smoking marijuana today. Reports nausea and one episode of vomiting. Denies any other complaints. PCP: none provided. Past Medical History Reviewed: Historical Data, Nursing Documentation, Vital Signs Vital Signs: Last Vital Signs Temp 98.8 F 09/01/17 22:06 Pulse 123 H 09/01/17 22:06 Resp 22 09/01/17 22:06 BP 131/73 09/01/17 22:06 Pulse Ox 100 09/01/17 22:06 - Medical History PMH: Bipolar Disorder, Depression, Schizophrenia Denies: Diabetes, Hepatitis, HIV, HTN, Chronic Kidney Disease, Seizures, Sexually Transmitted Disease - Family History Family History: States: Unknown Family Hx - Allergies Allergies/Adverse Reactions: Allergies Allergy/AdvReac Type Severity Reaction Status Date / Time No Known Allergies Allergy Verified 08/31/17 04:36 Review of Systems ROS Statement: Except As Marked, All Systems Reviewed And Found Negative Constitutional: Positive for: Other (EtOH intoxication) Gastrointestinal: Positive for: Nausea, Vomiting Physical Exam - Reviewed Nursing Documentation Reviewed: Yes Vital Signs Reviewed: Yes - Physical Exam Appears: Positive for: No Acute Distress Head Exam: Positive for: ATRAUMATIC, NORMAL INSPECTION, NORMOCEPHALIC Skin: Positive for: Normal Color, Warm, Dry Eye Exam: Positive for: Normal appearance Neck: Positive for: Normal Cardiovascular/Chest: Positive for: Regular Rate, Rhythm Respiratory: Negative for: Accessory Muscle Use, Respiratory Distress Extremity: Positive for: Normal ROM. Negative for: Pedal Edema Neurologic/Psych: Positive for: Alert, Oriented - Laboratory Results Result Diagrams: 09/02/17 00:00 09/02/17 00:00 - ECG O2 Sat by Pulse Oximetry: 100 (RA) Pulse Ox Interpretation: Normal Medical Decision Making Medical Decision Making: Time: 22:26 Initial impression: Acute alcohol intoxication Initial plan: Alcohol serum, CMP, CBC Urine drug screening Normal saline 1 L IV Zofran 4 mg IV Urinalysis Reevaluation Time: 00:00 Patient is signed out to Dr. Robbins pending labs and reevaluation. Scribe Attestation: Documented by Margaret Mina, acting as a scribe for Linnea Diaz MD. Provider Scribe Attestation: All medical record entries made by the Scribe were at my direction and personally dictated by me. I have reviewed the chart and agree that the record accurately reflects my personal performance of the history, physical exam, medical decision making, and the department course for this patient. I have also personally directed, reviewed, and agree with the discharge instructions and disposition. Disposition - Clinical Impression Clinical Impression: Alcohol abuse - Disposition Disposition: Transfer of Care Disposition Time: 00:00 Condition: STABLE Additional Instructions: Patient is medically and psychiatrically stable for incarceration Instructions: Abuse of Alcohol (ED) Forms: [employer] ([place]ian) Patient Signed Over To: Ashvin Robbins
[2017-09-02 00:08] LABS: BASO # 0.1 K/uL (0.0-0.2); BASO % 0.8 % (0.0-2.0); EOS % 0.2 % (0.0-4.0); HEMATOCRIT 40.9 % (35.0-51.0); LYMPH # 2.1 K/uL (1.0-4.3); LYMPH % 18.7 % (20.0-40.0); MEAN CELL VOLUME 89.8 fl (80.0-94.0); MEAN CORPUSCULAR HEMOGLOBIN 29.1 pg (27.0-31.0); MEAN CORPUSCULAR HGB CONC 32.4 g/dL (33.0-37.0); MEAN PLATELET VOLUME 7.2 fl (7.2-11.7); MONO # 0.7 K/uL (0.0-0.8); MONO % 6.3 % (0.0-10.0); NEUT # 8.5 K/uL (1.8-7.0); NRBC % 0.1 % (0.0-0.0); RED CELL DISTRIBUTION WIDTH 13.2 % (11.5-14.5); WHITE BLOOD COUNT 11.5 K/uL (4.8-10.8)
[2017-09-02 00:16] LABS: ALB/GLOB RATIO 1.4 (1.0-2.1); ALCOHOL SERUM 57 mg/dl (0-10); ALKALINE PHOSPHATASE 55 U/L (38-126); ALT/SGPT 41 U/L (21-72); AST/SGOT 20 U/L (17-59); BILIRUBIN,TOTAL 0.3 mg/dl (0.2-1.3); BLOOD UREA NITROGEN 18 mg/dl (9-20); CALCIUM 8.8 mg/dL (8.4-10.2); CARBON DIOXIDE 24 mmol/L (22-30); CHLORIDE 108 mmol/L (98-107); GFR AFRICAN-AMERICAN > 60; GLUCOSE,RANDOM 92 mg/dL (75-110); POTASSIUM 4.4 MMOL/L (3.6-5.0); SODIUM 143 mmol/l (132-148); TOTAL PROTEIN 7.3 G/DL (6.3-8.2)
--- NOTE | 2017-09-02 00:22 | ED PDOC ---
- Laboratory Results Result Diagrams: 09/02/17 00:00 09/02/17 00:00 - ECG O2 Sat by Pulse Oximetry: 100 (RA) Medical Decision Making Medical Decision Making: Time: 00:00 Plan: --Patient is signed over to me by Dr. Diaz pending labs and reevaluation. Time: 00:50 Clinical Impression: Alcohol abuse Plan: --Labs reviewed and no clinically significant abnormalities were found. Patient evaluated by crisis. Patient is psychiatrically and medically stable for discharge with HPD. Scribe Attestation: Documented by Linden Helton acting as a scribe for Ashvin Robbins MD. Scribe Attestation: All medical record entries made by the Scribe were at my direction and personally dictated by me. I have reviewed the chart and agree that the record accurately reflects my personal performance of the history, physical exam, medical decision making, and the department course for this patient. I have also personally directed, reviewed, and agree with the discharge instructions and disposition. Disposition Counseled Patient/Family Regarding: Studies Performed, Diagnosis - Clinical Impression Clinical Impression: Alcohol abuse - POA Present On Arrival: None - Disposition Disposition: Discharged/Transfer to Law Enforcement Disposition Time: 00:50 Condition: STABLE Additional Instructions: Patient is medically and psychiatrically stable for incarceration Instructions: Abuse of Alcohol (ED) Forms: [employer] (Guamanian)
== END 2017-09-02 01:14 ==
LOC: H.ER 22:04
DX: F10.129 Alcohol abuse with intoxication, unspecified (principal); F12.90 Cannabis use, unspecified, uncomplicated; F20.9 Schizophrenia, unspecified; F31.9 Bipolar disorder, unspecified
CPT/HCPCS: 80053; 80320; 82948; 85025; 99282; J2405; J7040

== ENCOUNTER 2017-09-02 03:41 | Emergency (ER) | payer OTHER ==
[2017-09-02 03:55] VITALS: BP 136/78; PULSE 72; RESP 18; TEMP 98; O2SAT 100
--- NOTE | 2017-09-02 04:11 | ED PDOC ---
HPI: General Adult Time Seen by Provider: 09/02/17 03:54 Chief Complaint (Nursing): Medical Clearance Chief Complaint (Provider): medical clearance. Additional Complaint(s): 27yo M in ED for medical clearance. pt was recently seen in ED for clearance and cleared for incarceration. Pt is now in ER with attempt at Suicide. pt was found with sock around neck attempting to commit suicide. states he bumped his head against the metal bar of halfway cell. no headache admits to bump on his forehead no nausea or vomiting. no LOC Past Medical History Reviewed: Historical Data, Nursing Documentation, Vital Signs Vital Signs: Last Vital Signs Temp 98.0 F 09/02/17 03:46 Pulse 72 09/02/17 03:46 Resp 18 09/02/17 03:46 BP 136/78 09/02/17 03:46 Pulse Ox 100 09/02/17 03:46 - Medical History PMH: Bipolar Disorder, Depression, Schizophrenia Denies: Diabetes, Hepatitis, HIV, HTN, Chronic Kidney Disease, Seizures, Sexually Transmitted Disease - Family History Family History: States: Unknown Family Hx - Allergies Allergies/Adverse Reactions: Allergies Allergy/AdvReac Type Severity Reaction Status Date / Time No Known Allergies Allergy Verified 08/31/17 04:36 Review of Systems ROS Statement: Except As Marked, All Systems Reviewed And Found Negative Constitutional: Negative for: Fever Physical Exam - Reviewed Nursing Documentation Reviewed: Yes Vital Signs Reviewed: Yes - Physical Exam Appears: Positive for: Well, Non-toxic, No Acute Distress Head Exam: Positive for: NORMAL INSPECTION, NORMOCEPHALIC. Negative for: ATRAUMATIC (small hematoma noted to forehead. ) Skin: Positive for: Normal Color, Warm, DRY Eye Exam: Positive for: Normal appearance Cardiovascular/Chest: Positive for: Regular Rate, Rhythm Respiratory: Positive for: CNT, Normal Breath Sounds Neurologic/Psych: Positive for: Alert, Oriented - ECG O2 Sat by Pulse Oximetry: 100 Medical Decision Making Medical Decision Making: pt is cleared by MD Jessenia for incarceration. Disposition - Clinical Impression Clinical Impression: Substance abuse - Patient ED Disposition Is Patient to be Admitted: No Counseled Patient/Family Regarding: Need For Followup - Disposition Disposition: Routine/Home Disposition Time: 04:13 Condition: STABLE Additional Instructions: ester James is medically and psychiatrically cleared for incarceration. Forms: [employer] (Eritrean)
== END 2017-09-02 04:25 ==
LOC: H.ER 03:41
DX: R45.851 Suicidal ideations (principal); F20.9 Schizophrenia, unspecified; F31.9 Bipolar disorder, unspecified

== ENCOUNTER 2017-09-02 04:57 | Emergency (ER) | payer OTHER ==
[2017-09-02 05:06] VITALS: BP 154/74; PULSE 71; RESP 17; TEMP 97.9; O2SAT 99
--- NOTE | 2017-09-02 05:10 | ED PDOC ---
HPI: General Adult Time Seen by Provider: 09/02/17 05:08 Chief Complaint (Nursing): Medical Clearance Chief Complaint (Provider): medical eval History Per: Patient Additional Complaint(s): 27yo M seen twice for medical clearance for incarceration today now returned for 3rd medical clearance for incarceration. pt attempted to strangle himself with his t-shirt. denies HI Past Medical History Reviewed: Historical Data, Nursing Documentation, Vital Signs Vital Signs: Last Vital Signs Temp 97.9 F 09/02/17 05:04 Pulse 71 09/02/17 05:04 Resp 17 09/02/17 05:04 BP 154/74 H 09/02/17 05:04 Pulse Ox 99 09/02/17 05:04 - Medical History PMH: Bipolar Disorder, Depression, Schizophrenia Denies: Diabetes, Hepatitis, HIV, HTN, Chronic Kidney Disease, Seizures, Sexually Transmitted Disease - Family History Family History: States: Unknown Family Hx - Allergies Allergies/Adverse Reactions: Allergies Allergy/AdvReac Type Severity Reaction Status Date / Time No Known Allergies Allergy Verified 08/31/17 04:36 Review of Systems ROS Statement: Except As Marked, All Systems Reviewed And Found Negative Constitutional: Negative for: Fever Physical Exam - Reviewed Nursing Documentation Reviewed: Yes Vital Signs Reviewed: Yes - Physical Exam Appears: Positive for: Well, Non-toxic, No Acute Distress Head Exam: Positive for: ATRAUMATIC, NORMAL INSPECTION, NORMOCEPHALIC Skin: Positive for: Normal Color, Warm, DRY Eye Exam: Positive for: EOMI, Normal appearance, PERRL ENT: Positive for: Normal ENT Inspection Neck: Positive for: Normal, Painless ROM Cardiovascular/Chest: Positive for: Regular Rate, Rhythm Respiratory: Positive for: CNT, Normal Breath Sounds Gastrointestinal/Abdominal: Positive for: Normal Exam, Bowel Sounds, Soft Neurologic/Psych: Positive for: Alert, Oriented - ECG O2 Sat by Pulse Oximetry: 99 Medical Decision Making Medical Decision Making: pt is cleared by MD Jessenia Disposition - Clinical Impression Clinical Impression: Substance abuse Counseled Patient/Family Regarding: Need For Followup - Disposition Disposition: Discharged/Transfer to Law Enforcement Disposition Time: 05:08 Condition: STABLE Additional Instructions: Kathy James is medically and psychiatrically cleared for incarceration.
== END 2017-09-02 05:20 ==
LOC: H.ER 04:57
DX: Z02.89 Encounter for other administrative examinations (principal); F20.9 Schizophrenia, unspecified; F31.9 Bipolar disorder, unspecified

== ENCOUNTER 2018-02-19 14:05 | Emergency (ER) | payer OTHER ==
[2018-02-19 14:14] VITALS: BP 137/81; PULSE 63; RESP 16; TEMP 98.1; O2SAT 100
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
--- NOTE | 2018-02-19 15:24 | CT ---
PROCEDURE: CT HEAD WITHOUT CONTRAST. HISTORY: head injury COMPARISON: None available. TECHNIQUE: Axial computed tomography images were obtained through the head/brain without intravenous contrast. Radiation dose: Total exam DLP = 06/11/2016 mGy-cm. This CT exam was performed using one or more of the following dose reduction techniques: Automated exposure control, adjustment of the mA and/or kV according to patient size, and/or use of iterative reconstruction technique. FINDINGS: HEMORRHAGE: No intracranial hemorrhage. BRAIN: No mass effect or edema. No atrophy or chronic microvascular ischemic changes. VENTRICLES: Unremarkable. No hydrocephalus. CALVARIUM: Unremarkable. PARANASAL SINUSES: Unremarkable as visualized. No significant inflammatory changes. MASTOID AIR CELLS: Unremarkable as visualized. No inflammatory changes. OTHER FINDINGS: None. IMPRESSION: No intracranial hemorrhage. Unremarkable examination.
--- NOTE | 2018-02-19 15:26 | CT ---
PROCEDURE: CT Cervical Spine without contrast HISTORY: neck injury COMPARISON: None available. TECHNIQUE: Axial computed tomography images were obtained of the cervical spine without the use of intravenous contrast. Coronal and sagittal reformatted images were created and reviewed. Radiation dose: Total exam DLP = 533.92 mGy-cm. This CT exam was performed using one or more of the following dose reduction techniques: Automated exposure control, adjustment of the mA and/or kV according to patient size, and/or use of iterative reconstruction technique. FINDINGS: VERTEBRAE: No fracture. Normal alignment. No destructive bony lesion. DISCS/SPINAL CANAL/NEURAL FORAMINA: No significant central canal or neural foraminal stenosis. Discs heights are grossly preserved. PARASPINAL SOFT TISSUES: Unremarkable. OTHER FINDINGS: None. IMPRESSION: Unremarkable CT of the cervical spine.
== END 2018-02-19 15:59 | disposition left against medical advice (07) ==
LOC: H.ER 14:05
DX: F07.81 Postconcussional syndrome (principal); F20.9 Schizophrenia, unspecified; F31.9 Bipolar disorder, unspecified

== ENCOUNTER 2018-03-31 23:30 | Inpatient (IN) | payer OTHER, SELFPAY ==
[2018-03-31 23:34] VITALS: O2SAT 97
--- NOTE | 2018-03-31 23:47 | ED PDOC ---
HPI: Psych/Substance Abuse Time Seen by Provider: 03/31/18 23:34 Chief Complaint (Nursing): Psychiatric Evaluation Chief Complaint (Provider): crisis eval History Per: Patient, EMS Additional Complaint(s): 27 y/o male brought in by EMS for crisis evaluation. Patient admits to hearing voices telling him to hurt himself and others; states he plans to jump in front of a car. Admits to suicide attempts in past by hanging. Denies drug/alcohol use, acute medical complaints. Past Medical History Reviewed: Historical Data, Nursing Documentation, Vital Signs Vital Signs: Last Vital Signs Temp 98.3 F 03/31/18 23:31 Pulse 73 03/31/18 23:31 Resp 17 03/31/18 23:31 BP 120/74 03/31/18 23:31 Pulse Ox 97 03/31/18 23:31 - Medical History PMH: Bipolar Disorder, Depression, Schizophrenia Denies: Diabetes, Hepatitis, HIV, HTN, Chronic Kidney Disease, Seizures, Sexually Transmitted Disease - Surgical History Surgical History: No Surg Hx - Family History Family History: States: Unknown Family Hx - Home Medications Home Medications: Ambulatory Orders Medication Instructions Recorded Meclizine [Antivert] 1 - 2 mg PO Q6 PRN #24 tab 02/19/18 Ondansetron ODT [Zofran ODT] 4 mg PO Q8 PRN #10 odt 02/19/18 - Allergies Allergies/Adverse Reactions: Allergies Allergy/AdvReac Type Severity Reaction Status Date / Time No Known Allergies Allergy Verified 08/31/17 04:36 Review of Systems ROS Statement: Except As Marked, All Systems Reviewed And Found Negative Psych: Positive for: Psychosis, Suicidal ideation Physical Exam - Reviewed Nursing Documentation Reviewed: Yes Vital Signs Reviewed: Yes - Physical Exam Appears: Positive for: Well, Non-toxic, No Acute Distress Head Exam: Positive for: ATRAUMATIC, NORMAL INSPECTION, NORMOCEPHALIC Skin: Positive for: Normal Color Eye Exam: Positive for: Normal appearance ENT: Positive for: Normal ENT Inspection Cardiovascular/Chest: Positive for: Regular Rate, Rhythm Respiratory: Positive for: Normal Breath Sounds Gastrointestinal/Abdominal: Positive for: Normal Exam Back: Positive for: Normal Inspection Extremity: Positive for: Normal ROM Neurologic/Psych: Positive for: Alert, Oriented, Mood/Affect (flat) - Laboratory Results Result Diagrams: 04/01/18 00:29 06/29/18 00:29 - ECG O2 Sat by Pulse Oximetry: 97 - Progress ED Course And Treament: 1:1 labs, urine, crisis eval Patient evaluated by sample shoe inspector and reworker; to be admitted as per Dr. Moya Medical Decision Making Medical Decision Making: Patient medically stable for psych admission Disposition - Clinical Impression Clinical Impression: Schizoaffective disorder - Patient ED Disposition Is Patient to be Admitted: Yes - Disposition Disposition Time: 01:11 Condition: STABLE
[2018-04-01 00:33] LABS: BASO # 0.1 K/uL (0.0-0.2); EOS # 0.1 K/uL (0.0-0.7); EOS % 1.9 % (0.0-4.0); HEMOGLOBIN 14.3 g/dL (12.0-18.0); LYMPH # 2.9 K/uL (1.0-4.3); LYMPH % 36.2 % (20.0-40.0); MEAN CORPUSCULAR HGB CONC 33.8 g/dL (33.0-37.0); MEAN PLATELET VOLUME 6.9 fl (7.2-11.7); MONO # 0.5 K/uL (0.0-0.8); MONO % 6.8 % (0.0-10.0); NEUT # 4.3 K/uL (1.8-7.0); NEUT % 54.1 % (50.0-75.0); NRBC % 0.1 % (0.0-0.0); RBC 4.77 Mil/uL (4.40-5.90); RED CELL DISTRIBUTION WIDTH 13.6 % (11.5-14.5)
[2018-04-01 00:44] LABS: ALB/GLOB RATIO 1.5 (1.0-2.1); ALBUMIN 4.1 g/dL (3.5-5.0); ALT/SGPT 39 U/L (21-72); AST/SGOT 24 U/L (17-59); BLOOD UREA NITROGEN 15 mg/dl (9-20); CALCIUM 9.1 mg/dL (8.4-10.2); GFR AFRICAN-AMERICAN > 60; GFR NON-AFRICAN AMERICAN > 60
[2018-04-01 00:52] LABS: URINE BILIRUBIN NEGATIVE (NEGATIVE); URINE BLOOD NEGATIVE (NEGATIVE); URINE CLARITY Turbid (Clear); URINE COLOR AMBER (YELLOW); URINE GLUCOSE (UA) NEGATIVE (Normal); URINE PROTEIN 30 mg/dL (NEGATIVE)
[2018-04-01 00:53] LABS: SQUAMOUS EPITHIAL 1 /hpf (0-5); URINE LEUKOCYTE ESTERASE NEGATIVE Leu/uL (Negative)
[2018-04-01 00:58] LABS: BARBITURATES, UR NEGATIVE (NEGATIVE); BENZODIAZEPINES, UR NEGATIVE (NEGATIVE); OPIATES, UR NEGATIVE (NEGATIVE); PHENCYCLIDINE, UR NEGATIVE (NEGATIVE)
[2018-04-01] MEDS ORDERED: DiphenhydrAMINE 50 mg/ml Inj IM PRN (04:29)
[2018-04-01] MEDS ORDERED: Magnesium Hydroxide Susp 30 ml UD PO PRN (04:29)
[2018-04-01] MEDS ORDERED: Alum-Mag Hydrox-Simethicone Susp (30 mL) PO PRN (04:29)
--- NOTE | 2018-04-01 04:48 | PCM.BM ---
<Lizbeth Morgan P - Last Filed: 04/01/18 04:47> Treatment Plan Problems - Problems identified on initial assessmt Suicidal Ideation Date Initiated: 04/01/18 (n) Assessment reference: NA Status: Active Auditory Hallucinations Date Initiated: 04/01/18 Time Initiated: 04:48 Assessment reference: NA Status: Active Treatment assets and liabiliti Patient Assests: adapts well, cooperative, resourceful, ADL independent, physically healthy, negotiates basic needs, cognitively intact Patient Liabilities: live alone, financial problems, poor support system, relationship conflicts - Milieu Protocol Maintain good personal hygiene: daily Encourage regular showers, daily Remind patient to perform daily oral care, daily Assist patient to perform ADL's Conduct patient checks and document Observation sheet: Q15 minutes Maintain personal safety: every shift Educate patient to report safety concerns to staff, every shift Monitor environment for contraband/sharps Medication safety: Monitor for expected outcome, potential side effects: every shift, Assess barriers to learning: every shift, Assess readiness for medication education: every shift <Sohail Robison J - Last Filed: 04/01/18 18:04> Family Contact Family involvement: Famliy/SO not involved Family contact: Patient declines to allow family contact at present Family contact name: Pt denied. - Goals for Treatment Patient goals for treatment: Pt would like help with his marijuana usage. Discharge/Continuing Care - Education Needs Education Needs: Patient Medication, Patient Diagnosis/Disease Process, Patient Coping Skills, Patient Community resources, Patient Aftercare Safety Plan - Discharge Discharge Criteria: Tolerates medication w/o severe side effects, Free of Suicidal thoughts, Free of paranoid thoughts, Free of agitation, Normal sleep pattern, Ability to care for self, Reduction of target symptoms Discharge to:: [facility] - Additional Comments 04/01/18 18:04 Pt reported that he is tired of being homeless and his only support is getting basic needs at the [facility]. - Treatment Team Participation Discussed with Family/SO: No Was Patient/Family/SO present at Treatment Team Meeting: Yes <Jabier Moya - Last Filed: 04/04/18 13:42> - Diagnosis (1) Cannabis abuse Status: Acute Interventions: motivational therapy 04/04/18 13:42
[2018-04-01 06:59] LABS: T4 9.03 ug/dl (5.5-11.0)
--- NOTE | 2018-04-01 11:20 | CP.PCM.CON ---
History of Present Illness - History of Present Illness History of Present Illness: This is a 27 year old male with a past medical history of polysubstance abuse, ETOH abuse,depression , psychiatric disorder, homeless, with frequent admissions to the psychiatry unit, admitted to the psych unit for suicidal ideation and hallucinations. Medicine consult was called. Patient denies chest pain, shortness of breath, fevers, chills, nausea, vomiting, diarrhea, headache. All of the patient's questions were answered at the bedside. Allergies ; NKDA PMH; psychiatric disorder, polysubstance abuse, homeless Medications ; NOne Surgery ; None Family history ; None Social history ; homeless ( has parents and siblings ), smoker , ETOH abuser when he starts to drink does not stop until he falls asleep, polysubstance abuse , marijuana, K2 Review of Systems - Review of Systems Review of Systems: 12 point ROS negative except for what was described in HPI. Past Patient History - Infectious Disease Hx of Infectious Diseases: None ( ) - Tetanus Immunizations Tetanus Immunization: Unknown - Past Medical History & Family History Past Medical History?: No Past Family History: Reviewed and not pertinent - Past Social History Smoking Status: Heavy Smoker > 10 Cigarettes Daily Alcohol: Other (Hx binge drinking) - CARDIAC Hx Cardiac Disorders: No Hx Hypertension: No - PULMONARY Hx Respiratory Disorders: No Hx Tuberculosis: No - NEUROLOGICAL Hx Neurological Disorder: No Hx Seizures: No - HEENT Hx HEENT Problems: No - RENAL Hx Chronic Kidney Disease: No - ENDOCRINE/METABOLIC Hx Endocrine Disorders: No - HEMATOLOGICAL/ONCOLOGICAL Hx Blood Disorders: No Hx Human Immunodeficiency Virus (HIV): No - INTEGUMENTARY Hx Dermatological Problems: No - MUSCULOSKELETAL/RHEUMATOLOGICAL Hx Musculoskeletal Disorders: No - GASTROINTESTINAL Hx Gastrointestinal Disorders: No - GENITOURINARY/GYNECOLOGICAL Hx Genitourinary Disorders: No Hx Sexually Transmitted Disorders: No - PSYCHIATRIC Hx Substance Use: No - SURGICAL HISTORY Hx Surgeries: No - ANESTHESIA Hx Anesthesia: No Hx Anesthesia Reactions: No Meds Allergies/Adverse Reactions: Allergies Allergy/AdvReac Type Severity Reaction Status Date / Time No Known Allergies Allergy Verified 08/31/17 04:36 - Medications Medications: Current Medications Acetaminophen (Tylenol 325mg Tab) 650 mg PO Q4 PRN PRN Reason: pain level 4-7 Al Hydrox/Mg Hydrox/Simethicone (Maalox Plus 30 Ml) 30 ml PO Q4 PRN PRN Reason: Dyspepsia Diphenhydramine HCl (Benadryl) 50 mg IM Q6 PRN PRN Reason: Extrapyramidal S/S Unable PO Diphenhydramine HCl (Benadryl) 50 mg PO Q6 PRN PRN Reason: Extrapyramidal Symptoms Diphenhydramine HCl (Benadryl) 50 mg PO HS PRN PRN Reason: Sleep Haloperidol (Haldol) 5 mg PO Q4 PRN PRN Reason: Agitation Haloperidol Lactate (Haldol) 5 mg IM Q4 PRN PRN Reason: Agitation, Unable to Take PO Lorazepam (Ativan) 1 mg IM Q8 PRN PRN Reason: Anxiety/Agitation,Unable PO Lorazepam (Ativan) 1 mg PO Q8 PRN PRN Reason: Anxiety/Agitation Magnesium Hydroxide (Milk Of Magnesia) 30 ml PO HS PRN PRN Reason: Constipation Physical Exam - Additional Findings Additional findings: Physical exam: Constitutional- cooperative, awake, alert Head- NCAT, PERRL Eye- PERRL, EOMI ENT- normal exam, MMM. Neck- normal inspection, supple, no JVD Respiratory- CTAB, no wheezes rales rhonchi Cardiovascular- RRR, +S1, +S2 no MRG GI/Abdominal- normal bowel sounds, soft, no mass, no hsm Skin- warm, dry Extremities Exam- normal capillary refill, normal inspection Neurological Exam- alert, awake, oriented Psych- depressed mood, normal affect Results - Vital Signs Recent Vital Signs: Last Vital Signs Temp 97.2 F L 04/01/18 09:09 Pulse 76 04/01/18 09:09 Resp 18 04/01/18 09:09 BP 115/78 04/01/18 09:09 Pulse Ox 97 04/01/18 03:45 - Labs Result Diagrams: 04/01/18 00:29 04/01/18 00:29 Labs: Laboratory Results - last 24 hr 04/01/18 04/01/18 04/01/18 00:17 00:29 00:29 WBC 8.0 RBC 4.77 Hgb 14.3 Hct 42.5 MCV 89.0 MCH 30.0 MCHC 33.8 RDW 13.6 Plt Count 174 MPV 6.9 L Neut % (Auto) 54.1 Lymph % (Auto) 36.2 Gates % (Auto) 6.8 Eos % (Auto) 1.9 Baso % (Auto) 1.0 Neut # (Auto) 4.3 Lymph # (Auto) 2.9 Gates # (Auto) 0.5 Eos # (Auto) 0.1 Baso # (Auto) 0.1 Sodium 139 Potassium 4.0 Chloride 102 Carbon Dioxide 26 Anion Gap 15 BUN 15 Creatinine 0.7 L Est GFR ( Amer) > 60 Est GFR (Non-Af Amer) > 60 POC Glucose (mg/dL) 113 H Random Glucose 114 H Calcium 9.1 Total Bilirubin 1.2 AST 24 ALT 39 Alkaline Phosphatase 54 Total Protein 6.9 Albumin 4.1 Globulin 2.8 Albumin/Globulin Ratio 1.5 Triglycerides Cholesterol LDL Cholesterol Direct HDL Cholesterol Thyroxine (T4) TSH 3rd Generation Urine Color Urine Clarity Urine pH Ur Specific [place] Urine Protein Urine Glucose (UA) Urine Ketones Urine Blood Urine Nitrate Urine Bilirubin Urine Urobilinogen Ur Leukocyte Esterase Urine RBC (Auto) Ur Squamous Epith Cells Urine Opiates Screen Urine Methadone Screen Ur Barbiturates Screen Ur Phencyclidine Scrn Ur Amphetamines Screen U Benzodiazepines Scrn U Oth Cocaine Metabols U Cannabinoids Screen Alcohol, Quantitative < 10 04/01/18 04/01/18 04/01/18 00:29 00:29 05:46 WBC RBC Hgb Hct MCV MCH MCHC RDW Plt Count MPV Neut % (Auto) Lymph % (Auto) Gates % (Auto) Eos % (Auto) Baso % (Auto) Neut # (Auto) Lymph # (Auto) Gates # (Auto) Eos # (Auto) Baso # (Auto) Sodium Potassium Chloride Carbon Dioxide Anion Gap BUN Creatinine Est GFR ( Amer) Est GFR (Non-Af Amer) POC Glucose (mg/dL) Random Glucose Calcium Total Bilirubin AST ALT Alkaline Phosphatase Total Protein Albumin Globulin Albumin/Globulin Ratio Triglycerides 103 D Cholesterol 148 LDL Cholesterol Direct 85 HDL Cholesterol 36 Thyroxine (T4) 9.03 TSH 3rd Generation 1.23 Urine Color Lilly Urine Clarity Turbid Urine pH 6.0 Ur Specific [place] 1.028 Urine Protein 30 Urine Glucose (UA) Negative Urine Ketones Negative Urine Blood Negative Urine Nitrate Negative Urine Bilirubin Negative Urine Urobilinogen 4.0 Ur Leukocyte Esterase Negative Urine RBC (Auto) 1 Ur Squamous Epith Cells 1 Urine Opiates Screen Negative Urine Methadone Screen Negative Ur Barbiturates Screen Negative Ur Phencyclidine Scrn Negative Ur Amphetamines Screen Negative U Benzodiazepines Scrn Negative U Oth Cocaine Metabols Negative U Cannabinoids Screen Negative Alcohol, Quantitative Assessment & Plan - Assessment and Plan (Free Text) Plan: This is a 27 year old male with a past medical history of polysubstance abuse, ETOH abuse,depression , psychiatric disorder, homeless, with frequent admissions to the psychiatry unit, admitted to the psych unit for suicidal ideation and hallucinations. Medicine consult was called. Patient denies chest pain, shortness of breath, fevers, chills, nausea, vomiting, diarrhea, headache. All of the patient's questions were answered at the bedside. 1.Suicidal ideations, schizoaffective disorder Continue psych management 2. Polysubstance abuse hx - Drug tox negative on this admission
--- NOTE | 2018-04-01 17:08 | PCM.PSYCH ---
Initial Psychiatric Evaluation - Initial Psychiatric Evaluation Type of Admission: Voluntary Legal Status: Capacity Chief Complaint (in patient's own words): I have no hope in life Patient's Reaction to Hospitalization: pt requested help History of Present Illness and Precipitating Events: pt with previous psychiatric diagnosis of cannabis abuse alcohol abuse and depression, brought to ER by EMS, called as pt exhibited disorganized behavior and verbalized suicidal ideation on evaluation pt reported feeling increasingly depressed as he is homeless and have no social support cut off by his family unable to find a job , seeing no hope in the future, passive suicidal ideation without active plan on the unit pt has been occasionally using alcohol and cannabis, reported some memory deficits, denied command hallucinations tions Current Medications: Active Medications Generic Name Dose Route Start Last Admin Trade Name Freq PRN Reason Stop Dose Admin Acetaminophen 650 mg 04/01/18 04:29 Tylenol 325mg Tab PO Q4 PRN pain level 4-7 Al Hydrox/Mg Hydrox/Simethicone 30 ml 04/01/18 04:29 Maalox Plus 30 Ml PO Q4 PRN Dyspepsia Diphenhydramine HCl 50 mg 04/01/18 04:29 Benadryl IM Q6 PRN Extrapyramidal S/S Unable PO Diphenhydramine HCl 50 mg 04/01/18 04:29 Benadryl PO Q6 PRN Extrapyramidal Symptoms Diphenhydramine HCl 50 mg 04/01/18 04:34 Benadryl PO HS PRN Sleep Escitalopram Oxalate 10 mg 04/02/18 09:00 Lexapro PO DAILY JANET Haloperidol 5 mg 04/01/18 04:29 Haldol PO Q4 PRN Agitation Haloperidol Lactate 5 mg 04/01/18 04:29 Haldol IM Q4 PRN Agitation, Unable to Take PO Hydroxyzine Pamoate 50 mg 04/01/18 16:55 Vistaril PO Q8 PRN Anxiety Lorazepam 1 mg 04/01/18 04:29 Ativan IM Q8 PRN Anxiety/Agitation,Unable PO Magnesium Hydroxide 30 ml 04/01/18 04:29 Milk Of Magnesia PO HS PRN Constipation Risperidone 1 mg 04/01/18 22:00 Risperdal Tab PO HS JANET Past Psychiatric History - Past Psychiatric History Previous Treatment History: Inpatient Explanation of prior treatment: multiple hospitalizations, history of non compliance History of ETOH/Drug Use: alcohol/cannabis Pertinent Medical Hx (Current Medical&Sleep Prob, Allergies): Allergies Allergy/AdvReac Type Severity Reaction Status Date / Time No Known Allergies Allergy Verified 08/31/17 04:36 Meclizine [Antivert] 1 - 2 mg PO Q6 PRN #24 tab 02/19/18 Ondansetron ODT [Zofran ODT] 4 mg PO Q8 PRN #10 odt 02/19/18 Mental Status Examination - Personal Presentation Personal Presentation: Looks stated age - Affect Affect: Constricted, Depressed - Motor Activity Motor Activity: Psychomotor Retardation - Reliability in Providing Information Reliability in Providing Information: Poor, due to alteration in thoughts, Poor , due to altered mood - Speech Speech: Disorganized - Mood Mood: Depressed, Anxious - Formal Thought Process Formal Thought Process: Circumstantial - Obsessions/Compulsions Obsessions: No Compulsions: No - Cognitive Functions Orientation: Person, Place Abstract Thinking: [place] Judgement: Imparied, as evidence by: Poor judgement, Imparied, as evidence by: Lack of insight into illness - Risk Risk: Suicidal, Diminished functioning - Strength & Assets Inventory Strength & Assets Inventory: Life experience - Limitations Additional comments: por social support DSM 5 DX - DSM 5 DSM 5 Diagnosis: depression cannabis abuse alcohol abuse - Recommended/Plan of Treatment Treatment Recommendations and Plan of Treatment: start risperidone 1mg qhs start [id number] mg CBT motivational group and supportive therapy
--- NOTE | 2018-04-02 11:49 | PCM.PYCHPN ---
Psychiatric Progress Note - Psychiatric Progress Note Patient seen today, length of contact: pr seen and evaluated Patient Chief Complaint: pt remains very labile and still upset about coming to hospital.pt has poor insight. Mental Status Examination - Cognitive Function Orientation: Person, Place - Mood Mood: Depressed, Anxious - Affect Affect: Constricted, Depressed - Formal Thought Process Formal Thought Process: Circumstantial - Homicidal Ideation Homicidal Ideation: No
--- NOTE | 2018-04-02 12:54 | CARD ---
APPROVED REPORT EKG Measurement Heart [id number] <Conclusion> Normal sinus rhythm Early repolarization Normal ECG
[2018-04-03 08:47] VITALS: RESP 18
[2018-04-03 16:48] VITALS: BP 121/83; PULSE 78; TEMP 98.2
--- NOTE | 2018-04-04 13:52 | PCM.PYCHDC ---
Mental Status Examination - Mental Status Examination Orientation: Person, Place, Situation Mood: Neutral Speech: Appropriate Concentration: WNL Association: WNL Fund of Knowledge: WNL Formal Thought Process: No Impairment Description of patient's judgement and insight: partial insight poor judgment Psychotic Thoughts and Behaviors: pt denied any current perceptual disturbances, non elicited Suicidal Ideation: No Current Homicidal Ideation?: No Discharge Summary - Discharge Note Reason for Hospitalization: pt with previous psychiatric diagnosis of cannabis abuse alcohol abuse and depression, brought to ER by EMS, called as pt exhibited disorganized behavior and verbalized suicidal ideation on evaluation pt reported feeling increasingly depressed as he is homeless and have no social support cut off by his family unable to find a job , seeing no hope in the future, passive suicidal ideation without active plan on the unit pt has been occasionally using alcohol and cannabis, reported some memory deficits, denied command hallucinations tions Consultations:: List each consultation separately and include: 1. Reason for request. 2. Findings. 3. Follow-up Summary of Hospital Course include:: 1. Description of specific treatment plan utilized for patients during their course of treatmen. 2. Summarize the time- course for resolution of acute symptoms and/or regressed behaviors. 3. Describe issues identified and worked on during hospitalization. 4. Describe medication utilized. 5. Describe medical problems identified and treated. 6. Reassessment of suicide risk Summary of Hospital Course: pt on admission was started onlexapro for depression and risperidone for cannabis induced paranoid delusions pt was compliant with medications however did not attend groups, requested to be discharged against medical advise , pt was educated about risks versus benefits to continue treatment and the need to be linked to outpatient rehab, he declined and requested to be released on discharge pt denied any current suicidal or homicidal ideation, denied perceptual disturbances , mental status on discharge was not danger to self or others - Diagnosis (1) Cannabis abuse Current Visit: Yes Status: Acute - Final Diagnosis (DSM 5) Condition upon Discharge: STABLE DSM 5: depression cannabis abuse Disposition: AGAINST MEDICAL ADVICE Follow-up Treatment Plan: start risperidone 1mg qhs start [id number] mg CBT motivational group and supportive therapy - Smoking Cessation Smoking Cessation Medication prescribed: No - Antipsychotic Medications Pt discharged on 2 or more routine antipsychotic medications: No
== END 2018-04-04 17:01 | disposition left against medical advice (07) | DRG 430 ==
LOC: H.ER 23:30 → H.ERHOLD 04-01 02:28 → H.PSYCH 04-01 04:17
PROVIDERS: ADMIT Psychiatry & Neurology Psychiatry; ATTEND Psychiatry & Neurology Psychiatry
PROC: GZ3ZZZZ Medication Management (ICD-10-PCS; principal; 2018-04-01)
PROC: GZHZZZZ Group Psychotherapy (ICD-10-PCS; 2018-04-01)
PROC: GZ56ZZZ Individual Psychotherapy, Supportive (ICD-10-PCS; 2018-04-01)
DX: F25.9 Schizoaffective disorder, unspecified (principal); F31.9 Bipolar disorder, unspecified; R45.851 Suicidal ideations; F12.10 Cannabis abuse, uncomplicated; Z91.19 Patient's noncompliance with other medical treatment and regimen; Z91.5 Personal history of self-harm; Z87.891 Personal history of nicotine dependence; Z59.0 Homelessness; F10.10 Alcohol abuse, uncomplicated

== ENCOUNTER 2018-12-08 02:09 | Emergency (ER) | payer MEDICAID ==
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
[2018-12-08 04:17] LABS: ALB/GLOB RATIO 1.3 (1.0-2.1); ALBUMIN 4.4 g/dL (3.5-5.0); ALT/SGPT 72 U/L (21-72); AST/SGOT 61 U/L (17-59); BLOOD UREA NITROGEN 15 mg/dl (9-20); CALCIUM 9.2 mg/dL (8.4-10.2); GFR NON-AFRICAN AMERICAN > 60
[2018-12-08 04:21] LABS: URINE BILIRUBIN NEGATIVE (NEGATIVE); URINE BLOOD NEGATIVE (NEGATIVE); URINE CLARITY SLIGHTY-CLOUDY (Clear); URINE COLOR STRAW (YELLOW); URINE GLUCOSE (UA) NEG (NEGATIVE); URINE LEUKOCYTE ESTERASE NEG Leu/uL (Negative); URINE PROTEIN NEGATIVE (NEGATIVE); URINE UROBILINOGEN 0.2-1.0 mg/dL (0.2-1.0)
[2018-12-08 04:27] LABS: BASO # 0.1 K/uL (0.0-0.2); LYMPH # 2.6 K/uL (1.0-4.3); MEAN PLATELET VOLUME 7.5 fl (7.2-11.7); RED CELL DISTRIBUTION WIDTH 13.2 % (11.5-14.5); WHITE BLOOD COUNT 6.8 K/uL (4.8-10.8)
[2018-12-08 04:29] LABS: BARBITURATES, UR NEGATIVE (NEGATIVE); BENZODIAZEPINES, UR NEGATIVE (NEGATIVE); OPIATES, UR NEGATIVE (NEGATIVE); PHENCYCLIDINE, UR NEGATIVE (NEGATIVE)
[2018-12-08 04:35] LABS: BASO % 0.7 % (0.0-2.0); EOS # 0.2 K/uL (0.0-0.7); EOS % 2.3 % (0.0-4.0); HEMOGLOBIN 14.9 g/dL (12.0-18.0); MEAN CELL VOLUME 90.3 fl (80.0-94.0); MEAN CORPUSCULAR HGB CONC 33.3 g/dL (33.0-37.0); MONO # 0.7 K/uL (0.0-0.8); MONO % 9.6 % (0.0-10.0); NEUT # 3.3 K/uL (1.8-7.0); NRBC % 0.1 % (0.0-0.0); RBC 4.95 Mil/uL (4.40-5.90)
[2018-12-08 04:39] LABS: LYMPH % 38.4 % (20.0-40.0)
--- NOTE | 2018-12-08 07:03 | ED PDOC ---
- Laboratory Results Result Diagrams: 12/08/18 03:45 12/08/18 03:45 Lab Results: Total Bilirubin 0.4 mg/dl (0.2-1.3) 12/08/18 03:45 AST 61 U/L (17-59) H D 12/08/18 03:45 ALT 72 U/L (21-72) D 12/08/18 03:45 Alkaline Phosphatase 69 U/L (38-126) 12/08/18 03:45 Total Protein 7.8 G/DL (6.3-8.2) 12/08/18 03:45 Albumin 4.4 g/dL (3.5-5.0) 12/08/18 03:45 Globulin 3.4 gm/dL (2.2-3.9) 12/08/18 03:45 Albumin/Globulin Ratio 1.3 (1.0-2.1) 12/08/18 03:45 Urine Color Straw (YELLOW) 12/08/18 03:45 Urine Clarity Slighty-cloudy (Clear) 12/08/18 03:45 Urine pH 7.0 (5.0-8.0) 12/08/18 03:45 Ur Specific [place] 1.006 (1.003-1.030) 12/08/18 03:45 Urine Protein Negative mg/dL (NEGATIVE) 12/08/18 03:45 Urine Glucose (UA) Neg mg/dL (NEGATIVE) 12/08/18 03:45 Urine Ketones Negative mg/dL (NEGATIVE) 12/08/18 03:45 Urine Blood Negative (NEGATIVE) 12/08/18 03:45 Urine Nitrate Negative (NEGATIVE) 12/08/18 03:45 Urine Bilirubin Negative (NEGATIVE) 12/08/18 03:45 Urine Urobilinogen 0.2-1.0 mg/dL (0.2-1.0) 12/08/18 03:45 Ur Leukocyte Esterase Neg Angel/uL (Negative) 12/08/18 03:45 Urine RBC (Auto) 1 /hpf (0-3) 12/08/18 03:45 Urine Microscopic WBC < 1 /hpf (0-5) 12/08/18 03:45 - ECG O2 Sat by Pulse Oximetry: 100 Medical Decision Making Medical Decision Making: Time: 0700 --Patient is endorsed to provider by Dr. Robbins, pending [facility] [place] screening. At present, patient is calm, resting in the bed. No apparent distress with stable vitals. Time: 1500 --Upon re-eval, patient remains medically stable and resting comfortably. Patient is signed out to Dr. Naik, pending [facility] [place] screening. Scribe Attestation: Documented by Charmaine Ramsey, acting as a scribe for Joshua Warren MD. Provider Scribe Attestation: All medical record entries made by the Scribe were at my direction and personally dictated by me. I have reviewed the chart and agree that the record accurately reflects my personal performance of the history, physical exam, medical decision making, and the department course for this patient. I have also personally directed, reviewed, and agree with the discharge instructions and disposition. Disposition - Clinical Impression Clinical Impression: Schizoaffective disorder - POA Present On Arrival: None - Disposition Disposition: Transfer of Care Disposition Time: 15:00 Condition: STABLE Patient Signed Over To: Demetrio Naik
--- NOTE | 2018-12-08 15:17 | ED PDOC ---
- Laboratory Results Result Diagrams: 12/08/18 03:45 12/08/18 03:45 Lab Results: Total Bilirubin 0.4 mg/dl (0.2-1.3) 12/08/18 03:45 AST 61 U/L (17-59) H D 12/08/18 03:45 ALT 72 U/L (21-72) D 12/08/18 03:45 Alkaline Phosphatase 69 U/L (38-126) 12/08/18 03:45 Total Protein 7.8 G/DL (6.3-8.2) 12/08/18 03:45 Albumin 4.4 g/dL (3.5-5.0) 12/08/18 03:45 Globulin 3.4 gm/dL (2.2-3.9) 12/08/18 03:45 Albumin/Globulin Ratio 1.3 (1.0-2.1) 12/08/18 03:45 Urine Color Straw (YELLOW) 12/08/18 03:45 Urine Clarity Slighty-cloudy (Clear) 12/08/18 03:45 Urine pH 7.0 (5.0-8.0) 12/08/18 03:45 Ur Specific [place] 1.006 (1.003-1.030) 12/08/18 03:45 Urine Protein Negative mg/dL (NEGATIVE) 12/08/18 03:45 Urine Glucose (UA) Neg mg/dL (NEGATIVE) 12/08/18 03:45 Urine Ketones Negative mg/dL (NEGATIVE) 12/08/18 03:45 Urine Blood Negative (NEGATIVE) 12/08/18 03:45 Urine Nitrate Negative (NEGATIVE) 12/08/18 03:45 Urine Bilirubin Negative (NEGATIVE) 12/08/18 03:45 Urine Urobilinogen 0.2-1.0 mg/dL (0.2-1.0) 12/08/18 03:45 Ur Leukocyte Esterase Neg Angel/uL (Negative) 12/08/18 03:45 Urine RBC (Auto) 1 /hpf (0-3) 12/08/18 03:45 Urine Microscopic WBC < 1 /hpf (0-5) 12/08/18 03:45 - ECG O2 Sat by Pulse Oximetry: 100 - Progress Re-evaluation Time: 23:20 Condition: Re-examined (No clinical change in condition. Remains calm.) Medical Decision Making Medical Decision Making: Time: 1500 --Patient is endorsed to provider by Dr. Warren, pending [facility] [place] screening. Scribe Attestation: Documented by Charmaine Ramsey, acting as a scribe for Demetrio Naik MD. Provider Scribe Attestation: All medical record entries made by the Scribe were at my direction and personally dictated by me. I have reviewed the chart and agree that the record accurately reflects my personal performance of the history, physical exam, medical decision making, and the department course for this patient. I have also personally directed, reviewed, and agree with the discharge instructions and disposition. Disposition - Clinical Impression Clinical Impression: Schizoaffective disorder - POA Present On Arrival: None - Disposition Disposition: Transfer of Care Disposition Time: 00:00 Condition: STABLE Forms: [facility] (Belgian) Patient Signed Over To: Karan Berrios
--- NOTE | 2018-12-08 18:23 | CARD ---
APPROVED REPORT Date of service: 12/08/2018 EKG Measurement Heart [id number] <Conclusion> Sinus bradycardia Early repolarization Otherwise normal ECG
--- NOTE | 2018-12-09 00:01 | ED PDOC ---
- Laboratory Results Result Diagrams: 12/08/18 03:45 12/08/18 03:45 Lab Results: Total Bilirubin 0.4 mg/dl (0.2-1.3) 12/08/18 03:45 AST 61 U/L (17-59) H D 12/08/18 03:45 ALT 72 U/L (21-72) D 12/08/18 03:45 Alkaline Phosphatase 69 U/L (38-126) 12/08/18 03:45 Total Protein 7.8 G/DL (6.3-8.2) 12/08/18 03:45 Albumin 4.4 g/dL (3.5-5.0) 12/08/18 03:45 Globulin 3.4 gm/dL (2.2-3.9) 12/08/18 03:45 Albumin/Globulin Ratio 1.3 (1.0-2.1) 12/08/18 03:45 Urine Color Straw (YELLOW) 12/08/18 03:45 Urine Clarity Slighty-cloudy (Clear) 12/08/18 03:45 Urine pH 7.0 (5.0-8.0) 12/08/18 03:45 Ur Specific [place] 1.006 (1.003-1.030) 12/08/18 03:45 Urine Protein Negative mg/dL (NEGATIVE) 12/08/18 03:45 Urine Glucose (UA) Neg mg/dL (NEGATIVE) 12/08/18 03:45 Urine Ketones Negative mg/dL (NEGATIVE) 12/08/18 03:45 Urine Blood Negative (NEGATIVE) 12/08/18 03:45 Urine Nitrate Negative (NEGATIVE) 12/08/18 03:45 Urine Bilirubin Negative (NEGATIVE) 12/08/18 03:45 Urine Urobilinogen 0.2-1.0 mg/dL (0.2-1.0) 12/08/18 03:45 Ur Leukocyte Esterase Neg Angel/uL (Negative) 12/08/18 03:45 Urine RBC (Auto) 1 /hpf (0-3) 12/08/18 03:45 Urine Microscopic WBC < 1 /hpf (0-5) 12/08/18 03:45 - ECG O2 Sat by Pulse Oximetry: 100 (RA) Pulse Ox Interpretation: Normal Medical Decision Making Medical Decision Making: Time: 0000 --Patient signed out to this provider by Dr. Naik, accepted to [facility], pending bed. 0300 pt sleeping in no distress on 10-04 Time: 0700 --Patient signed out to Dr. Ramirez by this provider, pending [facility] bed. Scribe Attestation: Documented by Nuria Pedro, acting as a scribe for Karan Berrios MD. Provider Scribe Attestation: All medical record entries made by the Scribe were at my direction and personally dictated by me. I have reviewed the chart and agree that the record accurately reflects my personal performance of the history, physical exam, medical decision making, and the department course for this patient. I have also personally directed, reviewed, and agree with the discharge instructions and disposition. Disposition Counseled Patient/Family Regarding: Studies Performed, Diagnosis, Need For Followup - Clinical Impression Clinical Impression: Schizoaffective disorder - POA Present On Arrival: None - Disposition Disposition: Transfer of Care Disposition Time: 06:58 Condition: STABLE Forms: [employer] (Pashto)
--- NOTE | 2018-12-09 07:06 | ED PDOC ---
- Laboratory Results Result Diagrams: 12/08/18 03:45 12/08/18 03:45 Lab Results: Total Bilirubin 0.4 mg/dl (0.2-1.3) 12/08/18 03:45 AST 61 U/L (17-59) H D 12/08/18 03:45 ALT 72 U/L (21-72) D 12/08/18 03:45 Alkaline Phosphatase 69 U/L (38-126) 12/08/18 03:45 Total Protein 7.8 G/DL (6.3-8.2) 12/08/18 03:45 Albumin 4.4 g/dL (3.5-5.0) 12/08/18 03:45 Globulin 3.4 gm/dL (2.2-3.9) 12/08/18 03:45 Albumin/Globulin Ratio 1.3 (1.0-2.1) 12/08/18 03:45 Urine Color Straw (YELLOW) 12/08/18 03:45 Urine Clarity Slighty-cloudy (Clear) 12/08/18 03:45 Urine pH 7.0 (5.0-8.0) 12/08/18 03:45 Ur Specific [place] 1.006 (1.003-1.030) 12/08/18 03:45 Urine Protein Negative mg/dL (NEGATIVE) 12/08/18 03:45 Urine Glucose (UA) Neg mg/dL (NEGATIVE) 12/08/18 03:45 Urine Ketones Negative mg/dL (NEGATIVE) 12/08/18 03:45 Urine Blood Negative (NEGATIVE) 12/08/18 03:45 Urine Nitrate Negative (NEGATIVE) 12/08/18 03:45 Urine Bilirubin Negative (NEGATIVE) 12/08/18 03:45 Urine Urobilinogen 0.2-1.0 mg/dL (0.2-1.0) 12/08/18 03:45 Ur Leukocyte Esterase Neg Angel/uL (Negative) 12/08/18 03:45 Urine RBC (Auto) 1 /hpf (0-3) 12/08/18 03:45 Urine Microscopic WBC < 1 /hpf (0-5) 12/08/18 03:45 - ECG O2 Sat by Pulse Oximetry: 100 (RA) Medical Decision Making Medical Decision Making: Time: 0700 --Patient is endorsed to provider by Dr. Berrios. Patient has been accepted inpatient at [facility], pending bed availability. Time: 0900 --At present, patient is resting comfortably with stable vitals. CXR orded for medical clearance at [facility]. Scribe Attestation: Documented by Charmaine Ramsey, acting as a scribe for Angela Ramirez MD. Provider Scribe Attestation: All medical record entries made by the Scribe were at my direction and personally dictated by me. I have reviewed the chart and agree that the record accurately reflects my personal performance of the history, physical exam, medical decision making, and the department course for this patient. I have also personally directed, reviewed, and agree with the discharge instructions and disposition. Disposition - Clinical Impression Clinical Impression: Schizoaffective disorder - POA Present On Arrival: None - Disposition Disposition: Transfer of Care Disposition Time: 14:49 Condition: STABLE Patient Signed Over To: Linnea Diaz
--- NOTE | 2018-12-09 09:36 | RAD ---
Date of service: 12/09/2018 HISTORY: medical clearance COMPARISON: Chest radiograph 08/26/2017. TECHNIQUE: Chest PA and lateral FINDINGS: LUNGS: No active pulmonary disease. PLEURA: No significant pleural effusion identified. No pneumothorax apparent. CARDIOVASCULAR: No aortic atherosclerotic calcification present. Normal cardiac size. No pulmonary vascular congestion. OSSEOUS STRUCTURES: No significant abnormalities. VISUALIZED UPPER ABDOMEN: Normal. OTHER FINDINGS: None. IMPRESSION: No interval acute cardiopulmonary disease appreciated.
--- NOTE | 2018-12-09 14:54 | ED PDOC ---
- Laboratory Results Result Diagrams: 12/08/18 03:45 12/08/18 03:45 Lab Results: Total Bilirubin 0.4 mg/dl (0.2-1.3) 12/08/18 03:45 AST 61 U/L (17-59) H D 12/08/18 03:45 ALT 72 U/L (21-72) D 12/08/18 03:45 Alkaline Phosphatase 69 U/L (38-126) 12/08/18 03:45 Total Protein 7.8 G/DL (6.3-8.2) 12/08/18 03:45 Albumin 4.4 g/dL (3.5-5.0) 12/08/18 03:45 Globulin 3.4 gm/dL (2.2-3.9) 12/08/18 03:45 Albumin/Globulin Ratio 1.3 (1.0-2.1) 12/08/18 03:45 Urine Color Straw (YELLOW) 12/08/18 03:45 Urine Clarity Slighty-cloudy (Clear) 12/08/18 03:45 Urine pH 7.0 (5.0-8.0) 12/08/18 03:45 Ur Specific [place] 1.006 (1.003-1.030) 12/08/18 03:45 Urine Protein Negative mg/dL (NEGATIVE) 12/08/18 03:45 Urine Glucose (UA) Neg mg/dL (NEGATIVE) 12/08/18 03:45 Urine Ketones Negative mg/dL (NEGATIVE) 12/08/18 03:45 Urine Blood Negative (NEGATIVE) 12/08/18 03:45 Urine Nitrate Negative (NEGATIVE) 12/08/18 03:45 Urine Bilirubin Negative (NEGATIVE) 12/08/18 03:45 Urine Urobilinogen 0.2-1.0 mg/dL (0.2-1.0) 12/08/18 03:45 Ur Leukocyte Esterase Neg Angel/uL (Negative) 12/08/18 03:45 Urine RBC (Auto) 1 /hpf (0-3) 12/08/18 03:45 Urine Microscopic WBC < 1 /hpf (0-5) 12/08/18 03:45 - ECG O2 Sat by Pulse Oximetry: 100 (RA) Medical Decision Making Medical Decision Makin:45 Pt laying in bed, calm, cooperative, no complaints. Disposition - Clinical Impression Clinical Impression: Schizoaffective disorder - POA Present On Arrival: None - Disposition Disposition: Transfer of Care Disposition Time: 19:00 Condition: STABLE Forms: [facility] (Yi) Patient Signed Over To: Dylan Martínez Handoff Comments: Pending [facility] bed availability. Addendum Addendum: 12/09/18 15:[address] Pt signed out [address] Ramirez pending bed availability @ [facility].
--- NOTE | 2018-12-09 15:18 | CP.PCM.CON ---
History of Present Illness - History of Present Illness History of Present Illness: face to face evaluation pt is 28 ys old male presenting to ER with disorganized behaviour, and expressing threats and homicidall ideation pt on evaluation, angry , irritable with disorganized speech, loose association, continues to verbalize homicidal threats,limited insight into illness refusing admission and refusing medications Past Patient History - Infectious Disease Hx of Infectious Diseases: None ( ) - Tetanus Immunizations Tetanus Immunization: Unknown - Past Medical History & Family History Past Medical History?: No - Past Social History Smoking Status: Heavy Smoker > 10 Cigarettes Daily - CARDIAC Hx Cardiac Disorders: No Hx Hypertension: No - PULMONARY Hx Tuberculosis: No - NEUROLOGICAL HX Cerebrovascular Accident: No Hx Seizures: No - HEENT Hx HEENT Problems: No - RENAL Hx Chronic Kidney Disease: No - ENDOCRINE/METABOLIC Hx Endocrine Disorders: No - HEMATOLOGICAL/ONCOLOGICAL Hx Cancer: No Hx Human Immunodeficiency Virus (HIV): No - INTEGUMENTARY Hx Dermatological Problems: No - MUSCULOSKELETAL/RHEUMATOLOGICAL Hx Musculoskeletal Disorders: No - GASTROINTESTINAL Hx Gastrointestinal Disorders: No - GENITOURINARY/GYNECOLOGICAL Hx Sexually Transmitted Disorders: No - PSYCHIATRIC Hx Bipolar Disorder: Yes Hx Depression: Yes Hx Schizophrenia: Yes - SURGICAL HISTORY Hx Surgeries: No - ANESTHESIA Hx Anesthesia: No Hx Anesthesia Reactions: No Meds Allergies/Adverse Reactions: Allergies Allergy/AdvReac Type Severity Reaction Status Date / Time No Known Allergies Allergy Verified 12/08/18 02:15 Results - Vital Signs Recent Vital Signs: Last Vital Signs Temp 98.1 F 12/09/18 05:33 Pulse 90 12/09/18 05:33 Resp 17 12/09/18 05:33 BP 113/72 12/09/18 05:33 Pulse Ox 100 12/09/18 14:53 - Labs Result Diagrams: 12/08/18 03:45 12/08/18 03:45 Assessment & Plan - Assessment and Plan (Free Text) Assessment: schizoaffective disorder bipolar type Plan: pt floridly psychotic danger to self and others, screened and [place] [facility] [place]
--- NOTE | 2018-12-10 06:34 | ED PDOC ---
- Laboratory Results Result Diagrams: 12/08/18 03:45 12/08/18 03:45 Lab Results: Total Bilirubin 0.4 mg/dl (0.2-1.3) 12/08/18 03:45 AST 61 U/L (17-59) H D 12/08/18 03:45 ALT 72 U/L (21-72) D 12/08/18 03:45 Alkaline Phosphatase 69 U/L (38-126) 12/08/18 03:45 Total Protein 7.8 G/DL (6.3-8.2) 12/08/18 03:45 Albumin 4.4 g/dL (3.5-5.0) 12/08/18 03:45 Globulin 3.4 gm/dL (2.2-3.9) 12/08/18 03:45 Albumin/Globulin Ratio 1.3 (1.0-2.1) 12/08/18 03:45 Urine Color Straw (YELLOW) 12/08/18 03:45 Urine Clarity Slighty-cloudy (Clear) 12/08/18 03:45 Urine pH 7.0 (5.0-8.0) 12/08/18 03:45 Ur Specific [place] 1.006 (1.003-1.030) 12/08/18 03:45 Urine Protein Negative mg/dL (NEGATIVE) 12/08/18 03:45 Urine Glucose (UA) Neg mg/dL (NEGATIVE) 12/08/18 03:45 Urine Ketones Negative mg/dL (NEGATIVE) 12/08/18 03:45 Urine Blood Negative (NEGATIVE) 12/08/18 03:45 Urine Nitrate Negative (NEGATIVE) 12/08/18 03:45 Urine Bilirubin Negative (NEGATIVE) 12/08/18 03:45 Urine Urobilinogen 0.2-1.0 mg/dL (0.2-1.0) 12/08/18 03:45 Ur Leukocyte Esterase Neg Angel/uL (Negative) 12/08/18 03:45 Urine RBC (Auto) 1 /hpf (0-3) 12/08/18 03:45 Urine Microscopic WBC < 1 /hpf (0-5) 12/08/18 03:45 - ECG O2 Sat by Pulse Oximetry: 98 Pulse Ox Interpretation: Normal Medical Decision Making Medical Decision MakinPM Patient endorsed to me by Dr. Diaz pending bed availability at [facility] [place] 10PM No acute events, patient is resting comfortably 1AM Resting quietly, no changes 4AM No changes, resting comfortably 7AM Will endorse to Dr. Diaz pending bed availbility at [facility] [place] Disposition - Clinical Impression Clinical Impression: Schizoaffective disorder - POA Present On Arrival: None - Disposition Disposition: Transfer of Care Disposition Time: 07:00 Condition: STABLE Forms: [facility] (Pashto) Patient Signed Over To: Linnea Diaz Handoff Comments: pending [facility] [place] bed availibility
[2018-12-10 06:54] VITALS: RESP 16
--- NOTE | 2018-12-10 07:21 | ED PDOC ---
- Laboratory Results Result Diagrams: 12/08/18 03:45 12/08/18 03:45 Lab Results: Total Bilirubin 0.4 mg/dl (0.2-1.3) 12/08/18 03:45 AST 61 U/L (17-59) H D 12/08/18 03:45 ALT 72 U/L (21-72) D 12/08/18 03:45 Alkaline Phosphatase 69 U/L (38-126) 12/08/18 03:45 Total Protein 7.8 G/DL (6.3-8.2) 12/08/18 03:45 Albumin 4.4 g/dL (3.5-5.0) 12/08/18 03:45 Globulin 3.4 gm/dL (2.2-3.9) 12/08/18 03:45 Albumin/Globulin Ratio 1.3 (1.0-2.1) 12/08/18 03:45 Urine Color Straw (YELLOW) 12/08/18 03:45 Urine Clarity Slighty-cloudy (Clear) 12/08/18 03:45 Urine pH 7.0 (5.0-8.0) 12/08/18 03:45 Ur Specific [place] 1.006 (1.003-1.030) 12/08/18 03:45 Urine Protein Negative mg/dL (NEGATIVE) 12/08/18 03:45 Urine Glucose (UA) Neg mg/dL (NEGATIVE) 12/08/18 03:45 Urine Ketones Negative mg/dL (NEGATIVE) 12/08/18 03:45 Urine Blood Negative (NEGATIVE) 12/08/18 03:45 Urine Nitrate Negative (NEGATIVE) 12/08/18 03:45 Urine Bilirubin Negative (NEGATIVE) 12/08/18 03:45 Urine Urobilinogen 0.2-1.0 mg/dL (0.2-1.0) 12/08/18 03:45 Ur Leukocyte Esterase Neg Angel/uL (Negative) 12/08/18 03:45 Urine RBC (Auto) 1 /hpf (0-3) 12/08/18 03:45 Urine Microscopic WBC < 1 /hpf (0-5) 12/08/18 03:45 - ECG O2 Sat by Pulse Oximetry: 98 (RA) Pulse Ox Interpretation: Normal Medical Decision Making Medical Decision Makin Patient signed out to me by Dr. Martínez pending [facility] [place] bed availability. Patient noted to be resting comfortably in room, and is in no acute distress. 1122 On reassessment, patient is resting comfortably, vital signs stable. Patient accepted by Dr. Hoang at [facility] [place], stable for transfer. Scribe Attestation: Documented by Julia Griffith, acting as a scribe for Linnea Diaz MD. Provider Scribe Attestation: All medical record entries made by the Scribe were at my direction and personally dictated by me. I have reviewed the chart and agree that the record accurately reflects my personal performance of the history, physical exam, medical decision making, and the department course for this patient. I have also personally directed, reviewed, and agree with the discharge instructions and disposition. Disposition - Clinical Impression Clinical Impression: Schizoaffective disorder - POA Present On Arrival: None - Disposition Disposition: Other Institution ([facility] [place]) Disposition Time: 11:23 Condition: STABLE Forms: [employer] (Swedish)
--- NOTE | 2018-12-10 10:24 | CP.PCM.CON ---
History of Present Illness - History of Present Illness History of Present Illness: Psychiatry consult follow-up note CC: "I was having bad thoughts." HPI: 28 yo male w/ h/o schizoaffective disorder, presents w/ disorganized behavior and homicidal threats against [employer] people. He continues to have poor insight/judgment, is guarded, labile and disorganized. Patient screened and accepted for involuntary psychiatric admission. Impression: 28 yo male w/ schizoaffective disorder is an acute danger to others. -Transfer to [facility] [place] when bed is available Past Patient History - Infectious Disease Hx of Infectious Diseases: None ( ) - Tetanus Immunizations Tetanus Immunization: Unknown - Past Medical History & Family History Past Medical History?: No - Past Social History Smoking Status: Heavy Smoker > 10 Cigarettes Daily - CARDIAC Hx Cardiac Disorders: No Hx Hypertension: No - PULMONARY Hx Tuberculosis: No - NEUROLOGICAL HX Cerebrovascular Accident: No Hx Seizures: No - HEENT Hx HEENT Problems: No - RENAL Hx Chronic Kidney Disease: No - ENDOCRINE/METABOLIC Hx Endocrine Disorders: No - HEMATOLOGICAL/ONCOLOGICAL Hx Cancer: No Hx Human Immunodeficiency Virus (HIV): No - INTEGUMENTARY Hx Dermatological Problems: No - MUSCULOSKELETAL/RHEUMATOLOGICAL Hx Musculoskeletal Disorders: No - GASTROINTESTINAL Hx Gastrointestinal Disorders: No - GENITOURINARY/GYNECOLOGICAL Hx Sexually Transmitted Disorders: No - PSYCHIATRIC Hx Bipolar Disorder: Yes Hx Depression: Yes Hx Schizophrenia: Yes - SURGICAL HISTORY Hx Surgeries: No - ANESTHESIA Hx Anesthesia: No Hx Anesthesia Reactions: No Meds Allergies/Adverse Reactions: Allergies Allergy/AdvReac Type Severity Reaction Status Date / Time eggs Allergy SWELLING Uncoded 12/10/18 10:17 Results - Vital Signs Recent Vital Signs: Last Vital Signs Temp 98.7 F 12/10/18 07:14 Pulse 58 L 12/10/18 07:14 Resp 16 12/10/18 07:14 BP 106/65 12/10/18 07:14 Pulse Ox 100 12/10/18 09:19 - Labs Result Diagrams: 12/08/18 03:45 12/08/18 03:45
[2018-12-10 12:30] VITALS: BP 121/70; PULSE 62; TEMP 97.6; O2SAT 100
== END 2018-12-10 11:40 | disposition short-term general hospital (02) ==
LOC: H.ER 02:09
DX: F25.0 Schizoaffective disorder, bipolar type (principal); R45.850 Homicidal ideations; F17.210 Nicotine dependence, cigarettes, uncomplicated